=== PATIENT | female | born 1945 | race American Indian/Alaskan Native ===

== ENCOUNTER 2019-01-03 21:37 | Emergency (ER) | payer MEDICARE ==
--- NOTE | 2019-01-03 21:55 | Emergency Department Report ---
Blank Doc - Documentation Documentation: 73 y o female presents to Ed cc of lower back pain states she took some pain me dication which gave her little rellief denies dysuria, fall or trauma, pain worsened with movement ua acc eval
[2019-01-03 23:37] LABS: Bacteria,Urine 4+ /HPF (Negative); Bilirubin,Urine NEG (Negative); Blood,Urine NEG (Negative); Color,Urine Amber (Yellow); Mucus,Urine 2+ /HPF
[2019-01-04] MEDS ORDERED: TYLENOL #3 PO ONE (01:06)
--- NOTE | 2019-01-04 01:10 | Emergency Department Report ---
ED Neck Pain/Injury HPI - General Chief Complaint: Neck Pain/Injury Stated Complaint: R NECK PAIN, HEADACHES Time Seen by Provider: 01/03/19 21:50 Mode of arrival: Ambulatory Limitations: No Limitations - History of Present Illness Initial Comments: Pt is a 73 yo female who presents to the ED with c/o right sided neck pain that began 2 weeks ago. She describes the pain as a spasm and throbbing. she states that it travels to the head and causes a throbbing feeling to the head. She denies any injury, fall or trauma. she states it is worse with movement. she denies any heavy lifting. She denies any vision changes, numbness or weakness. She states she has been taking gabapentin and tizanidine without much relief. she has a PMHx of HTN and did not take her medication today. - Related Data Home Medications Medication Instructions Recorded Confirmed Last Taken Escitalopram Oxalate [Lexapro] 10 mg PO DAILY 09/23/13 04/19/15 Unknown Folic Acid [Folvite] 1 mg PO DAILY 09/23/13 04/19/15 04/17/15 Lisinopril [Zestril] 40 mg PO DAILY 09/23/13 04/19/15 04/17/15 amLODIPine [Norvasc] 10 mg PO DAILY 09/23/13 04/19/15 04/17/15 hydrALAZINE [Apresoline TAB] 50 mg PO BID 09/23/13 04/19/15 04/17/15 Previous Rx's Medication Instructions Recorded Last Taken Type Cyclobenzaprine [Flexeril] 10 mg PO TID PRN #10 tablet 09/15/18 Unknown Rx predniSONE [Deltasone] 20 mg PO DAILY #5 tablet 09/15/18 Unknown Rx Baclofen [Lioresal] 10 mg PO QHS PRN #10 tab 01/04/19 Unknown Rx Meloxicam [Mobic] 7.5 mg PO QDAY PRN #14 tablet 01/04/19 Unknown Rx Prednisone [predniSONE 5 mg (6-Day 5 mg PO .TAPER #1 tab.ds.pk 01/04/19 Unknown Rx Pack, 21 Tabs)] Allergies Allergy/AdvReac Type Severity Reaction Status Date / Time aspirin Allergy Bleeding Verified 09/22/13 22:59 ED Review of Systems ROS: Stated complaint: R NECK PAIN, HEADACHES Other details as noted in HPI Comment: All other systems reviewed and negative ED Past Medical Hx - Past Medical History Previous Medical History?: Yes Hx Hypertension: Yes Hx Arthritis: Yes Hx Dementia: Yes Additional medical history: Irregular heartbeat in the 90s, she is not sure what the diagnosis was. HPLD, ANXIETY, GERD, ARTHRITIS - Surgical History Past Surgical History?: Yes Hx Cholecystectomy: Yes Hx Appendectomy: Yes Additional Surgical History: Hysterectomy, Hemorroidectomy - Social History Smoking Status: Never Smoker Substance Use Type: None - Medications Home Medications: Home Medications Medication Instructions Recorded Confirmed Last Taken Type Escitalopram Oxalate [Lexapro] 10 mg PO DAILY 09/23/13 04/19/15 Unknown History Folic Acid [Folvite] 1 mg PO DAILY 09/23/13 04/19/15 04/17/15 History Lisinopril [Zestril] 40 mg PO DAILY 09/23/13 04/19/15 04/17/15 History amLODIPine [Norvasc] 10 mg PO DAILY 09/23/13 04/19/15 04/17/15 History hydrALAZINE [Apresoline TAB] 50 mg PO BID 09/23/13 04/19/15 04/17/15 History Cyclobenzaprine [Flexeril] 10 mg PO TID PRN #10 tablet 09/15/18 Unknown Rx predniSONE [Deltasone] 20 mg PO DAILY #5 tablet 09/15/18 Unknown Rx Baclofen [Lioresal] 10 mg PO QHS PRN #10 tab 01/04/19 Unknown Rx Meloxicam [Mobic] 7.5 mg PO QDAY PRN #14 tablet 01/04/19 Unknown Rx Prednisone [predniSONE 5 mg (6-Day 5 mg PO .TAPER #1 tab.ds.pk 01/04/19 Unknown Rx Pack, 21 Tabs)] ED Physical Exam - General Limitations: No Limitations General appearance: alert, in no apparent distress - Head Head exam: Present: atraumatic, normocephalic - Eye Eye exam: Present: normal appearance, PERRL, EOMI - Neck Neck exam: Present: normal inspection, tenderness (TTP to the right lateral neck over the muscles, no midline C-spine tenderness, no step offs, no deformities), full ROM, other (no carotid bruit bilaterally ) - Respiratory Respiratory exam: Present: normal lung sounds bilaterally. Absent: respiratory distress, wheezes, rales, rhonchi, stridor, chest wall tenderness, accessory muscle use, decreased breath sounds, prolonged expiratory - Cardiovascular Cardiovascular Exam: Present: regular rate, normal rhythm, normal heart sounds. Absent: systolic murmur, diastolic murmur, rubs, gallop - Neurological Exam Neurological exam: Present: alert, oriented X3, CN II-XII intact, normal gait, other (5/5 strength in the BUE/BLE, normal finger to nose, normal heel to robles, equal fertilizer loader strength, sensation intact, no focal neuro deficit ). Absent: motor sensory deficit - Psychiatric Psychiatric exam: Present: normal affect, normal mood - Skin Skin exam: Present: warm, dry, intact ED Course Vital Signs 01/03/19 01/04/19 21:49 01:36 Temperature 97.9 F Pulse Rate 98 H 63 Respiratory 18 16 Rate Blood Pressure 187/108 Blood Pressure 187/108 187/77 [Left] O2 Sat by Pulse 100 100 Oximetry ED Medical Decision Making - Medical Decision Making Pt is a 73 yo female who presents to the ED with c/o right sided neck pain that began 2 weeks ago. She describes the pain as a spasm and throbbing. she states that it travels to the head and causes a throbbing feeling to the head. She denies any injury, fall or trauma. she states it is worse with movement. she denies any heavy lifting. She denies any vision changes, numbness or weakness. She states she has been taking gabapentin and tizanidine without much relief. she has a PMHx of HTN and did not take her medication today. pt has TTP over the right lateral neck over the muscles, no midline c-spine tenderness, no step offs, no deformities, no neuro deficit, no carotid bruit. pt given pain medication while in the emergency department, states her daughter drove her. discussed with pt that would change her zanaflex to baclofen, discussed with pt that she could no longer take the zanaflex. will give anti-inflammatory and steroid pack. discussed to please take her blood pressure medication. advised pt to follow up with her PCP in the next 2-3 days and discuss neck discomfort and high blood pressure. may use ice, rest, heat, epsom salt bath. return to the emergency room for any new or worsening symptoms. Critical care attestation.: If time is entered above; I have spent that time in minutes in the direct care of this critically ill patient, excluding procedure time. ED Disposition Clinical Impression: Neck pain, Elevated blood pressure reading Disposition: TO HOME OR SELFCARE Is pt being admited?: No Does the pt Need Aspirin: No Condition: Stable Instructions: Muscle Strain (ED) Additional Instructions: No longer take the zanaflex (tizanidine). take medication as prescribed. do not operate heavy machinery or drive while taking muscle relaxer due to potential for drowsiness. Please take your blood pressure medication as prescribed by your doctor. Follow up with your primary care doctor in the next 2-3 days and discuss neck discomfort and high blood pressure. may use ice, rest, heat, epsom salt bath. return to the emergency room for any new or worsening symptoms. Prescriptions: Baclofen [Lioresal] 10 mg PO QHS PRN #10 tab PRN Reason: Muscle Spasm Meloxicam [Mobic] 7.5 mg PO QDAY PRN #14 tablet PRN Reason: Pain, Moderate (4-6) Prednisone [predniSONE 5 mg (6-Day Pack, 21 Tabs)] 5 mg PO .TAPER #1 tab.ds.pk Referrals: EMPERATRIZ HICKMAN MD [Staff Physician] - 2-3 Days Time of Disposition: 01:14 Print Language: K[place]ILI
[2019-01-04 01:37] VITALS: BP 187/77
== END 2019-01-04 01:37 | disposition home or self-care (01) ==
LOC: ED 21:37
DX: M54.2 Cervicalgia (principal); I10 Essential (primary) hypertension; M19.90 Unspecified osteoarthritis, unspecified site; K21.9 Gastro-esophageal reflux disease without esophagitis; E78.5 Hyperlipidemia, unspecified; Z90.49 Acquired absence of other specified parts of digestive tract; Z88.6 Allergy status to analgesic agent; Z90.710 Acquired absence of both cervix and uterus; Z98.890 Other specified postprocedural states
CPT/HCPCS: 81001; 99283

== ENCOUNTER 2019-04-05 08:48 | Emergency (ER) | payer MEDICARE ==
[2019-04-05 09:00] VITALS: BP 170/78
--- NOTE | 2019-04-05 09:41 | Emergency Department Report ---
ED Back Pain/Injury HPI - General Chief Complaint: Back Pain/Injury Stated Complaint: LT SIDE PAIN Time Seen by Provider: 04/05/19 09:33 Source: patient Limitations: No Limitations - History of Present Illness Initial Comments: Patient is 74 years old female with history of hypertension and arthritis. Patient presented to the ER complaining of left flank pain for the last 3 days. Patient stated that pain feels like spasm. Patient denied any chest pain but he stated that it hurt when she take a deep breath on the left side. Patient denied any fever or chills. She also reported nausea but no vomiting. Patient also had increased urinary frequency. MD Complaint: back pain -: days(s) (3) - Related Data Home Medications Medication Instructions Recorded Confirmed Last Taken Escitalopram Oxalate [Lexapro] 10 mg PO DAILY 09/23/13 04/19/15 Unknown Folic Acid [Folvite] 1 mg PO DAILY 09/23/13 04/19/15 04/17/15 Lisinopril [Zestril] 40 mg PO DAILY 09/23/13 04/19/15 04/17/15 amLODIPine [Norvasc] 10 mg PO DAILY 09/23/13 04/19/15 04/17/15 hydrALAZINE [Apresoline TAB] 50 mg PO BID 09/23/13 04/19/15 04/17/15 Previous Rx's Medication Instructions Recorded Last Taken Type Cyclobenzaprine [Flexeril] 10 mg PO TID PRN #10 tablet 09/15/18 Unknown Rx predniSONE [Deltasone] 20 mg PO DAILY #5 tablet 09/15/18 Unknown Rx Baclofen [Lioresal] 10 mg PO QHS PRN #10 tab 01/04/19 Unknown Rx Meloxicam [Mobic] 7.5 mg PO QDAY PRN #14 tablet 01/04/19 Unknown Rx Prednisone [predniSONE 5 mg (6-Day 5 mg PO .TAPER #1 tab.ds.pk 01/04/19 Unknown Rx Pack, 21 Tabs)] Allergies Allergy/AdvReac Type Severity Reaction Status Date / Time aspirin Allergy Bleeding Verified 09/22/13 22:59 ED Review of Systems ROS: Stated complaint: LT SIDE PAIN Other details as noted in HPI Comment: All other systems reviewed and negative Constitutional: denies: chills, fever Respiratory: denies: cough Cardiovascular: denies: chest pain, palpitations Gastrointestinal: nausea. denies: abdominal pain, diarrhea, constipation, hematemesis, melena, hematochezia Genitourinary: frequency Musculoskeletal: back pain Neurological: denies: headache, weakness, numbness, paresthesias, confusion, abnormal gait ED Past Medical Hx - Past Medical History Previous Medical History?: Yes Hx Hypertension: Yes Hx Arthritis: Yes Hx Dementia: Yes Additional medical history: Irregular heartbeat in the 90s, she is not sure what the diagnosis was. HPLD, ANXIETY, GERD, ARTHRITIS - Surgical History Past Surgical History?: Yes Hx Cholecystectomy: Yes Hx Appendectomy: Yes Additional Surgical History: Hysterectomy, Hemorroidectomy - Social History Smoking Status: Current Every Day Smoker Substance Use Type: Alcohol, Prescribed - Medications Home Medications: Home Medications Medication Instructions Recorded Confirmed Last Taken Type Escitalopram Oxalate [Lexapro] 10 mg PO DAILY 09/23/13 04/19/15 Unknown History Folic Acid [Folvite] 1 mg PO DAILY 09/23/13 04/19/15 04/17/15 History Lisinopril [Zestril] 40 mg PO DAILY 09/23/13 04/19/15 04/17/15 History amLODIPine [Norvasc] 10 mg PO DAILY 09/23/13 04/19/15 04/17/15 History hydrALAZINE [Apresoline TAB] 50 mg PO BID 09/23/13 04/19/15 04/17/15 History Cyclobenzaprine [Flexeril] 10 mg PO TID PRN #10 tablet 09/15/18 Unknown Rx predniSONE [Deltasone] 20 mg PO DAILY #5 tablet 09/15/18 Unknown Rx Baclofen [Lioresal] 10 mg PO QHS PRN #10 tab 01/04/19 Unknown Rx Meloxicam [Mobic] 7.5 mg PO QDAY PRN #14 tablet 01/04/19 Unknown Rx Prednisone [predniSONE 5 mg (6-Day 5 mg PO .TAPER #1 tab.ds.pk 01/04/19 Unknown Rx Pack, 21 Tabs)] ED Physical Exam - General Limitations: No Limitations General appearance: alert, in no apparent distress - Head Head exam: Present: atraumatic, normocephalic, normal inspection - Eye Eye exam: Present: normal appearance, PERRL - ENT ENT exam: Present: normal exam, normal orophraynx, mucous membranes moist - Neck Neck exam: Present: normal inspection, full ROM. Absent: tenderness, meningismus, lymphadenopathy, thyromegaly - Respiratory Respiratory exam: Present: normal lung sounds bilaterally - Cardiovascular Cardiovascular Exam: Present: regular rate, normal rhythm, normal heart sounds - GI/Abdominal GI/Abdominal exam: Present: soft, normal bowel sounds. Absent: distended, tenderness, guarding, rebound, rigid, organomegaly, mass, bruit, pulsatile mass, hernia - Extremities Exam Extremities exam: Present: normal inspection, full ROM, normal capillary refill. Absent: tenderness, pedal edema, calf tenderness - Back Exam Back exam: Present: normal inspection, CVA tenderness (L). Absent: full ROM, tenderness, CVA tenderness (R) - Neurological Exam Neurological exam: Present: alert, oriented X3, CN II-XII intact, normal gait, reflexes normal - Psychiatric Psychiatric exam: Present: normal mood - Skin Skin exam: Present: warm, intact, normal color ED Course Vital Signs 04/05/19 08:58 Temperature 98.2 F Pulse Rate 94 H Respiratory 18 Rate Blood Pressure 170/78 O2 Sat by Pulse 100 Oximetry ED Medical Decision Making - Lab Data Result diagrams: 04/05/19 10:41 04/05/19 10:41 - Radiology Data Radiology results: report reviewed Referring Physician: WALT NAZARIO Patient Name: CYDNEY CONNER Date of : 1945 Sex: Female Report Date: 2019-04-05 Report Status: Finalized Findings [address] [address] Cat Scan Report Signed Patient: CYDNEY CONNER MR#: [id number] : 1945 Acct:[id number] Age/Sex: 74 / F ADM Date: 04/05/19 Loc: ED Attending Dr: Ordering Physician: WALT NAZARIO Date of Service: 04/05/19 Procedure(s): CT abdomen pelvis wo con Accession Number(s): [id number] cc: WALT NAZARIO CT ABDOMEN AND PELVIS WITHOUT CONTRAST INDICATION / CLINICAL INFORMATION: left flank pain. Several day history of acute worsening left flank pain. TECHNIQUE: Axial CT images were obtained through the abdomen and pelvis without IV contrast. All CT scans at this location are performed using CT dose reduction for ALARA by means of automated exposure control. COMPARISON: None available. FINDINGS: LOWER CHEST: No significant abnormality. LIVER: No significant abnormality. GALLBLADDER: No significant abnormality. BILE DUCTS: No significant abnormality. PANCREAS: No significant abnormality. SPLEEN: No significant abnormality. ADRENALS: No significant abnormality. RIGHT KIDNEY and URETER: No significant abnormality. LEFT KIDNEY and URETER: Nonobstructive left-sided nephrolithiasis STOMACH and SMALL BOWEL: No significant abnormality. COLON: No significant abnormality. Partial colonic resection. APPENDIX: Appendectomy PERITONEUM: No free fluid. No free air. No fluid collection. LYMPH NODES: No significant adenopathy. AORTA and ARTERIES: No significant abnormality. IVC and VEINS: No significant abnormality. URINARY BLADDER: No significant abnormality. REPRODUCTIVE ORGANS: No significant abnormality. Prior hysterectomy. ADDITIONAL FINDINGS: None. SKELETAL SYSTEM: No significant abnormality. IMPRESSION: Nonobstructive stones within the left collecting system. No obstructive left ureteral calculus identified. Signer Name: Stevan Oseguera MD Signed: 04/05/2019 10:22 AM Workstation Name: [id number] Transcribed By: BC Dictated By: Stevan Oseguera MD Electronically Authenticated By: Stevan Oseguera MD Signed Date/Time: 04/05/19 1022 DD/ [id number] TD/TT: - Medical Decision Making Patient is 74 years old female with history of hypertension and arthritis. Patient presented to the ER complaining of left flank pain for the last 3 days. Patient stated that pain feels like spasm. Patient denied any chest pain but he stated that it hurt when she take a deep breath on the left side. Patient denied any fever or chills. She also reported nausea but no vomiting. Patient also had increased urinary frequency. Patient labs reviewed and is unremarkable. Patient's CT abdomen and pelvis showed a left kidney stone, nonobstructing. Patient given Dr. Bustillo to follow- up and advised to return to the ER if symptoms are not improved. Critical care attestation.: If time is entered above; I have spent that time in minutes in the direct care of this critically ill patient, excluding procedure time. ED Disposition Clinical Impression: Left flank pain, Kidney stone on left side Disposition: DC- TO HOME OR SELFCARE Is pt being admited?: No Condition: Stable Instructions: Flank Pain (ED), Kidney Stones (ED) Referrals: MAGALY SOUSA MD [Other] - 3-5 Days ALCIDES BUSTILLO MD [Staff Physician] - 3-5 Days
--- NOTE | 2019-04-05 10:26 | Cat Scan Report ---
CT ABDOMEN AND PELVIS WITHOUT CONTRAST INDICATION / CLINICAL INFORMATION: left flank pain. Several day history of acute worsening left flank pain. TECHNIQUE: Axial CT images were obtained through the abdomen and pelvis without IV contrast. All CT scans at [facility] location are performed using CT dose reduction for ALARA by means of automated exposure control. COMPARISON: None available. FINDINGS: LOWER CHEST: No significant abnormality. LIVER: No significant abnormality. GALLBLADDER: No significant abnormality. BILE DUCTS: No significant abnormality. PANCREAS: No significant abnormality. SPLEEN: No significant abnormality. ADRENALS: No significant abnormality. RIGHT KIDNEY and URETER: No significant abnormality. LEFT KIDNEY and URETER: Nonobstructive left-sided nephrolithiasis STOMACH and SMALL BOWEL: No significant abnormality. COLON: No significant abnormality. Partial colonic resection. APPENDIX: Appendectomy PERITONEUM: No free fluid. No free air. No fluid collection. LYMPH NODES: No significant adenopathy. AORTA and ARTERIES: No significant abnormality. IVC and VEINS: No significant abnormality. URINARY BLADDER: No significant abnormality. REPRODUCTIVE ORGANS: No significant abnormality. Prior hysterectomy. ADDITIONAL FINDINGS: None. SKELETAL SYSTEM: No significant abnormality. IMPRESSION: Nonobstructive stones within the left collecting system. No obstructive left ureteral calculus identi fied. Signer Name: Stevan Oseguera MD Signed: 04/05/2019 10:22 AM Workstation Name: [id number]
[2019-04-05 11:00] LABS: Basophils # (Auto) 0.1 K/mm3 (0.0-0.1); Basophils % (Auto) 0.8 % (0.0-1.8); Eosinophils # (Auto) 0.2 K/mm3 (0.0-0.4); Eosinophils % (Auto) 2.7 % (0.0-4.3); Hematocrit 38.1 % (30.3-42.9); Hemoglobin 12.6 gm/dl (10.1-14.3); Lymphocytes # (Auto) 2.8 K/mm3 (1.2-5.4); Lymphocytes % (Auto) 45.8 % (13.4-35.0); Mean Corpuscular HGB Conc 33 % (30-34); Mean Corpuscular Volume 84 fl (79-97); Monocytes # (Auto) 0.4 K/mm3 (0.0-0.8); Monocytes % (Auto) 6.9 % (0.0-7.3); Platelet Count 235 K/mm3 (140-440); Red Blood Count 4.52 M/mm3 (3.65-5.03); Red Cell Distribution Width 15.3 % (13.2-15.2)
[2019-04-05 11:19] LABS: Calcium 9.4 mg/dL (8.4-10.2)
[2019-04-05 13:40] LABS: Bacteria,Urine 2+ /HPF (Negative); Bilirubin,Urine NEG (Negative); Blood,Urine NEG (Negative); Color,Urine Yellow (Yellow); Mucus,Urine FEW /HPF; Protein,Urine <15 mg/dL mg/dL (Negative); Urobilinogen,Urine < 2.0 mg/dL (<2.0)
[2019-04-05] MEDS ORDERED: MORPHINE IM ONE (14:07)
[2019-04-05] MEDS ORDERED: ZOFRAN IM ONE (14:07)
== END 2019-04-05 14:43 | disposition home or self-care (01) ==
LOC: ED 08:48
DX: N20.0 Calculus of kidney (principal); I10 Essential (primary) hypertension; M19.90 Unspecified osteoarthritis, unspecified site; F03.90 Unspecified dementia, unspecified severity, without behavioral disturbance, psychotic disturbance, mood disturbance, and anxiety; F17.200 Nicotine dependence, unspecified, uncomplicated; Z90.49 Acquired absence of other specified parts of digestive tract; Z90.89 Acquired absence of other organs; Z98.51 Tubal ligation status; Z98.890 Other specified postprocedural states; Z79.899 Other long term (current) drug therapy; Z88.6 Allergy status to analgesic agent
CPT/HCPCS: 36415; 74176; 80048; 81001; 85025; 85379; 96372; 99284; J2270; J2405

== ENCOUNTER 2019-05-01 19:56 | Inpatient (IN) | payer MEDICARE ==
--- NOTE | 2019-05-01 20:39 | Event Note ---
ED Screening Note Date of service: 05/01/19 Time: 20:35 ED Screening Note: This is a 74 y.o. F. that presents to the ER with chest pain and cough for 2 weeks. Patient seen in the ER 1 month ago and diagnosed with kidney stones. Patient called nurse hotline and told to come in for further evaluation. This initial assessment/diagnostic orders/clinical plan/treatment(s) is/are subject to change based on patients health status, clinical progression and re- assessment by fellow clinical providers in the ED. Further treatment and workup at subsequent clinical providers discretion. Patient/guardian urged not to elope from the ED as their condition may be serious if not clinically assessed and managed. Initial orders include: Labs, EKG, & CXR
--- NOTE | 2019-05-01 21:17 | XRay Report ---
CHEST 1 VIEW 8:54 PM INDICATION / CLINICAL INFORMATION: Chest Pain. COMPARISON: 09/15/2018. FINDINGS: SUPPORT DEVICES: None. HEART / MEDIASTINUM: The heart size and pulmonary vasculature are normal. The aorta is normal in suyapa margot. LUNGS / PLEURA: No significant pulmonary or pleural abnormality. No pneumothorax. ADDITIONAL FINDINGS: No significant additional findings. IMPRESSION: No acute abnormality or significant change. Signer Name: Adilson Doe MD Signed: 05/01/2019 9:12 PM Workstation Name: [id number]
[2019-05-01] MEDS ORDERED: fentaNYL 100 MCG/2 ML INJ IV ONE (21:31)
[2019-05-01] MEDS ORDERED: ONDANSETRON 4 MG/2 ML INJ IV ONE (21:31)
--- NOTE | 2019-05-01 21:34 | Emergency Department Report ---
HPI - General Chief Complaint: Chest Pain Time Seen by Provider: 05/01/19 20:34 - HPI HPI: Room 3 The patient is 74-year-old male presenting with chief complaint of chest and back pain. The patient states this morning she's had intermittent back spasms and was diagnosed with renal colic. Over the past week the patient states she also developed pleuritic chest pain and pain that worsens with movement in addition to her back pain which is described as sharp in nature. The patient states her chest pain is associated with shortness of breath, diaphoresis and nausea without vomiting. She missed pleurisy and gives her chest pain score 10/10. The patient contacted her primary physician today and was advised to come to the ED Location: [See above] Duration: [See above] Quality: [See above] Severity: [See above] Timing: [See above] Context: [See above] Modifying factors: [See above] Associated signs and symptoms: [see above] ED Past Medical Hx - Past Medical History Previous Medical History?: Yes Hx Hypertension: Yes Hx Arthritis: Yes Hx Kidney Stones: Yes Hx Dementia: Yes Additional medical history: Irregular heartbeat in the 90s, she is not sure what the diagnosis was. HPLD, ANXIETY, GERD, ARTHRITIS - Surgical History Past Surgical History?: Yes Hx Cholecystectomy: Yes Hx Appendectomy: Yes Additional Surgical History: Hysterectomy, Hemorroidectomy - Family History Family history: no significant - Social History Smoking Status: Current Every Day Smoker (1/2 pack per day) Substance Use Type: Alcohol (occasional) - Medications Home Medications: Home Medications Medication Instructions Recorded Confirmed Last Taken Type Escitalopram Oxalate [Lexapro] 10 mg PO DAILY 09/23/13 04/19/15 Unknown History Folic Acid [Folvite] 1 mg PO DAILY 09/23/13 04/19/15 04/17/15 History Lisinopril [Zestril] 40 mg PO DAILY 09/23/13 04/19/15 04/17/15 History amLODIPine [Norvasc] 10 mg PO DAILY 09/23/13 04/19/15 04/17/15 History hydrALAZINE [Apresoline TAB] 50 mg PO BID 09/23/13 04/19/15 04/17/15 History Cyclobenzaprine [Flexeril] 10 mg PO TID PRN #10 tablet 09/15/18 Unknown Rx predniSONE [Deltasone] 20 mg PO DAILY #5 tablet 09/15/18 Unknown Rx Baclofen [Lioresal] 10 mg PO QHS PRN #10 tab 01/04/19 Unknown Rx Meloxicam [Mobic] 7.5 mg PO QDAY PRN #14 tablet 01/04/19 Unknown Rx Prednisone [predniSONE 5 mg (6-Day 5 mg PO .TAPER #1 tab.ds.pk 01/04/19 Unknown Rx Pack, 21 Tabs)] HYDROcodone/APAP 5-325 [[place] 1 each PO Q6HR PRN #14 tablet 04/05/19 Unknown Rx 5/325] Ondansetron [Zofran Odt] 4 mg PO Q8HR PRN #14 tab.rapdis 04/05/19 Unknown Rx ED Review of Systems ROS: Stated complaint: CHEST PAIN,BODY PAIN,WEAKNESS Other details as noted in HPI Constitutional: diaphoresis Eyes: denies: eye pain ENT: denies: throat pain Respiratory: shortness of breath, other (pleurisy) Cardiovascular: chest pain Endocrine: no symptoms reported Gastrointestinal: nausea. denies: vomiting Genitourinary: denies: dysuria Musculoskeletal: back pain Neurological: denies: headache Physical Exam - Physical Exam Vital Signs: Vital Signs 05/01/19 20:10 Temperature 99.1 F Pulse Rate 85 Respiratory 20 Rate Blood Pressure 116/72 O2 Sat by Pulse 99 Oximetry Physical Exam: GENERAL: The patient is well-developed well-nourished female lying on stretcher appearing to be in mild discomfort HEENT: Normocephalic. Atraumatic. Extraocular motions are intact. Patient has moist mucous membranes. NECK: Supple. Trachea midline CHEST/LUNGS: Diminished breath sounds bilaterally secondary to poor effort. There is no respiratory distress noted. HEART/CARDIOVASCULAR: Regular. There is no tachycardia. There is no gallop rub or murmur. ABDOMEN: Abdomen is soft, nontender. Patient has normal bowel sounds. There is no abdominal distention. SKIN: There is no rash. There is no edema. There is no diaphoresis. NEURO: The patient is awake, alert, and oriented. The patient is cooperative. The patient has normal speech MUSCULOSKELETAL: There is no evidence of acute injury. ED Course Vital Signs 05/01/19 20:10 Temperature 99.1 F Pulse Rate 85 Respiratory 20 Rate Blood Pressure 116/72 O2 Sat by Pulse 99 Oximetry ED Medical Decision Making - Lab Data Result diagrams: 05/01/19 21:02 05/01/19 21:02 Laboratory Tests 05/01/19 05/01/19 05/01/19 21:02 21:02 21:20 WBC 7.1 RBC 3.72 Hgb 10.0 L Hct 31.1 MCV 84 MCH 27 L MCHC 32 RDW 13.7 Plt Count 386 Lymph % (Auto) 34.6 [place] % (Auto) 8.2 H Eos % (Auto) 2.3 Baso % (Auto) 1.2 Lymph # 2.5 [place] # 0.6 Eos # 0.2 Baso # 0.1 Seg Neutrophils % 53.7 Seg Neutrophils # 3.8 Sodium 141 Potassium 3.1 L Chloride 95.8 L Carbon Dioxide 26 Anion Gap 22 BUN 9 Creatinine 1.0 Estimated GFR > 60 BUN/Creatinine Ratio 9 Glucose 99 Calcium 8.9 Troponin T < 0.010 Urine Color Yellow Urine Turbidity Clear Urine pH 6.0 Ur Specific Chambers 1.009 Urine Protein <15 mg/dl Urine Glucose (UA) Neg Urine Ketones Neg Urine Blood Neg Urine Nitrite Neg Urine Bilirubin Neg Urine Urobilinogen 2.0 Ur Leukocyte Esterase Neg Urine WBC (Auto) 1.0 Urine RBC (Auto) 3.0 U Epithel Cells (Auto) < 1.0 Urine Bacteria (Auto) 2+ - EKG Data -: EKG Interpreted by Me EKG shows normal: sinus rhythm Rate: normal - EKG Data When compared to previous EKG there are: no significant change Interpretation: unchanged when compared t (09/15/2018) - Radiology Data Radiology results: report reviewed (chest x-ray, CT chest), image reviewed (chest x-ray, CT chest) interpreted by me: Chest x-ray-minor fluid in the patient versus atelectasis right upper lobe. Possibly blunted left costophrenic angle. No focal infiltrates, no pneumothorax [facility] [address] [place] [address] XRay Report Signed Patient: CYDNEY CONNER MR#: [id number] : 1945 Acct:[id number] Age/Sex: 74 / F ADM Date: 05/01/19 Loc: ED Attending Dr: Ordering Physician: CHINA GONZALEZ Date of Service: 05/01/19 Procedure(s): XR chest 1V ap Accession Number(s): [id number] cc: CHINA GONZALEZ Fluoro Time In Minutes: CHEST 1 VIEW 8:54 PM INDICATION / CLINICAL INFORMATION: Chest Pain. COMPARISON: 09/15/2018. FINDINGS: SUPPORT DEVICES: None. HEART / MEDIASTINUM: The heart size and pulmonary vasculature are normal. The aorta is normal in caliber. LUNGS / PLEURA: No significant pulmonary or pleural abnormality. No pneumothorax. ADDITIONAL FINDINGS: No significant additional findings. IMPRESSION: No acute abnormality or significant change. Signer Name: Adilson Doe MD Signed: 05/01/2019 9:12 PM Workstation Name: [id number] Transcribed By: RT Dictated By: Adilson Doe MD Electronically Authenticated By: Adilson Doe MD Signed Date/Time: 05/01/192111 DD/ 10 TD/TT: [place] [address] Cat Scan Report Signed Patient: CYDNEY CONNER MR#: [id number] : 1945 Acct:[id number] Age/Sex: 74 / F ADM Date: 05/01/19 Loc: ED Attending Dr: Ordering Physician: OMER JAUREGUI MD Date of Service: 05/01/19 Procedure(s): CT angio chest Accession Number(s): [id number] cc: OMER JAUREGUI MD CTA CHEST WITH CONTRAST INDICATION / CLINICAL INFORMATION: chest pain, pleurisy, shortness of breath. TECHNIQUE: Axial CT images were obtained through the chest after injection of IV contrast. 3 plane MIP and/or 3D reconstructions were produced. All CT scans at this location are performed using CT dose reduction for ALARA by means of automated exposure control. COMPARISON: None available. FINDINGS: PULMONARY ARTERIES: No pulmonary emboli. THORACIC AORTA: No sig nificant abnormality. HEART: No significant abnormality. CORONARY ARTERIES: Mild LAD calcification. MEDIASTINUM / JAYDON: No significant abnormality. PLEURA: No pleural effusion. Mild right pleural thickening. No pneumothorax. LUNGS: No acute air space or interstitial disease. Mild bibasilar dependent atelectasis. ADDITIONAL FINDINGS: None. UPPER ABDOMEN: No acute findings. SKELETAL STRUCTURES: No significant osseous abnormality. IMPRESSION: 1. No CT evidence for pulmonary embolism. 2. Mild right pleural thickening without significant pleural effusion. Signer Name: Tony Sullivan MD Signed: 05/01/2019 11:28 PM Workstation Name: [id number] Transcribed By: ANDRA Dictated By: Pablo Sullivan MD Electronically Authenticated By: Pablo Sullivan MD Signed Date/Time: 05/01/192327 DD/ 24 TD/TT: - Differential Diagnosis PE, pleurisy, ACS, pericarditis, GERD, aortic dissection Critical care attestation.: If time is entered above; I have spent that time in minutes in the direct care of this critically ill patient, excluding procedure time. ED Disposition Clinical Impression: Chest pain Disposition: OP ADMIT IP TO THIS HOSP Is pt being admited?: Yes Does the pt Need Aspirin: No Condition: Fair Instructions: Chest Pain (ED) Referrals: SAMI MORADRAPER MD MARYAN [Referring] - 3-5 Days Time of Disposition: 23:37 (hospitalist paged (Dr Leroy))
[2019-05-01 21:35] LABS: Basophils # (Auto) 0.1 K/mm3 (0.0-0.1); Basophils % (Auto) 1.2 % (0.0-1.8); Eosinophils # (Auto) 0.2 K/mm3 (0.0-0.4); Eosinophils % (Auto) 2.3 % (0.0-4.3); Hematocrit 31.1 % (30.3-42.9); Lymphocytes # (Auto) 2.5 K/mm3 (1.2-5.4); Lymphocytes % (Auto) 34.6 % (13.4-35.0); Mean Corpuscular HGB Conc 32 % (30-34); Mean Corpuscular Volume 84 fl (79-97); Monocytes # (Auto) 0.6 K/mm3 (0.0-0.8); Monocytes % (Auto) 8.2 % (0.0-7.3); Platelet Count 386 K/mm3 (140-440); Red Blood Count 3.72 M/mm3 (3.65-5.03); Red Cell Distribution Width 13.7 % (13.2-15.2)
[2019-05-01 21:54] LABS: BUN/Creatinine Ratio 9; Blood Urea Nitrogen 9 mg/dL (7-17); Calcium 8.9 mg/dL (8.4-10.2); Hemolysis Index 2
[2019-05-01 21:57] LABS: Bacteria,Urine 2+ /HPF (Negative); Bilirubin,Urine NEG (Negative); Blood,Urine NEG (Negative); Color,Urine Yellow (Yellow); Protein,Urine <15 mg/dL mg/dL (Negative)
[2019-05-01] MEDS ORDERED: POTASSIUM CHLORIDE ER 20 MEQ TAB PO ONE (22:29)
--- NOTE | 2019-05-01 23:32 | Cat Scan Report ---
CTA CHEST WITH CONTRAST INDICATION / CLINICAL INFORMATION: chest pain, pleurisy, shortness of breath. TECHNIQUE: Axial CT images were obtained through the chest after injection of IV contrast. 3 plane MIP and/or 3D reconstructions were produced. All CT scans at this location are performed using CT dose reduction f or ALARA by means of automated exposure control. COMPARISON: None available. FINDINGS: PULMONARY ARTERIES: No pulmonary emboli. THORACIC AORTA: No significant abnormality. HEART: No significant abnormality. CORONARY ARTERIES: Mild LAD calcification. MEDIASTINUM / JAYDON: No significant abnormality. PLEURA: No pleural effusion. Mild right pleural thickening. No pneumothorax. LUNGS: No acute air space or interstitial disease. Mild bibasilar dependent atelectasis. ADDITIONAL FINDINGS: None. UPPER ABDOMEN: No acute findings. SKELETAL STRUCTURES: No significant osseous abnormality. IMPRESSION: 1. No CT evidence for pulmonary embolism. 2. Mild right pleural thickening without significant pleural effusion. Signer Name: Tony Sullivan MD Signed: 05/01/2019 11:28 PM Workstation Name: [id number]
[2019-05-01] MEDS ORDERED: CLOPIDOGREL 300 MG TAB PO ONE (23:37)
[2019-05-02] MEDS ORDERED: ONDANSETRON 4 MG/2 ML INJ IV PRN (00:25)
[2019-05-02] MEDS ORDERED: ACETAMINOPHEN 325 MG TAB PO PRN (00:25)
[2019-05-02] MEDS ORDERED: MORPHINE 2 MG/1 ML INJ IV PRN (00:25)
[2019-05-02] MEDS ORDERED: NITROGLYCERIN 0.4 MG TAB SUBL SL PRN (00:27)
[2019-05-02] MEDS ORDERED: POTASSIUM CHLORIDE 20 MEQ 20 MEQ/100 ML BAG IV ONE (00:29)
[2019-05-02 01:13] LABS: BUN/Creatinine Ratio 8; Blood Urea Nitrogen 8 mg/dL (7-17); Calcium 8.3 mg/dL (8.4-10.2); Hemolysis Index 13
[2019-05-02] MEDS ORDERED: HEPARIN 5,000 UNIT/1 ML VIAL ONE (01:19)
[2019-05-02] MEDS: HEPARIN 5,000 UNIT/1 ML VIAL SUB-Q SCH ×2 (01:32→10:07)
[2019-05-02] MEDS ORDERED: SODIUM CHLORIDE 0.9% 1000 ML 1,000 ML ONE (01:37)
[2019-05-02] MEDS ORDERED: MORPHINE 2 MG/1 ML INJ ONE (01:48)
--- NOTE | 2019-05-02 05:47 | History and Physical Report ---
CHIEF COMPLAINT: Chest pain. HISTORY OF PRESENT ILLNESS: The patient is a 74-year-old female who presented with a sharp chest pain located in the retrosternal area and precordial area radiating to the back. The patient admitted to having intermittent back spasms going on for quite some time and was diagnosed with kidney stone, but the back pain is lower down in the flank areas and the patient stated that over the past week she has had some pleuritic chest pain and also pain that is worse with movement and she said that the pain is associated with shortness of breath, diaphoresis and nausea without vomiting. The patient gave her pain rate as 10/10 and contacted her primary care physician on 05/01/2019 who advised her to come to the Emergency Room. PAST MEDICAL HISTORY: Pertinent for hypertension, arthritis, kidney stones, dementia. Also, there is past history of irregular heartbeat, anxiety disorder, and gastroesophageal reflux disease. PAST SURGICAL HISTORY: Pertinent for cholecystectomy, appendectomy, hysterectomy, hemorrhoidectomy. FAMILY HISTORY: There is no family history of coronary artery disease. SOCIAL HISTORY: The patient smokes cigarettes, drinks alcohol occasionally and does not use illicit drugs. MEDICATIONS: The patient is on Lexapro 10 mg by mouth daily, folic acid 1 mg by mouth daily, lisinopril 40 mg by mouth daily, Norvasc 10 mg by mouth daily, Apresoline 50 mg by mouth twice daily, Flexeril 10 mg by mouth 3 times daily as needed for pain, prednisone 20 mg daily, baclofen 10 mg by mouth every night as needed for muscle spasm, meloxicam 7.5 mg by mouth daily as needed for pain and [place] 5/325 mg 1 by mouth every 6 hours as needed for pain. Also, the patient is on Zofran under the tongue 4 mg every 8 hours as needed for nausea and vomiting. ALLERGIES: The patient is allergic to ASPIRIN. REVIEW OF SYSTEMS: CONSTITUTIONAL: There is no fever, no chills, no diaphoresis. HEENT: There is no headache or sore throat. CARDIOVASCULAR SYSTEM: Chest pain is present. No orthopnea. RESPIRATORY SYSTEM: Shortness of breath is present. No cough. GASTROINTESTINAL SYSTEM: There is nausea, but no vomiting, no abdominal pain, diarrhea or constipation. NEUROLOGICAL SYSTEM: There is dizziness, but no numbness. No altered mental status. MUSCULOSKELETAL SYSTEM: There is no joint pain or swelling. DERMATOLOGICAL SYSTEM: There is no skin rash or itching. GENITOURINARY SYSTEM: There is no dysuria, hematuria, or flank pain. Rest of system review is normal. PHYSICAL EXAMINATION: GENERAL: At the time of exam, the patient was found to be alert, oriented x 3 and in mild distress due to chest pain. VITAL SIGNS: At the initial time of presentation showed temperature of 99.1 degrees Fahrenheit, pulse of 85, respirations 20, blood pressure 116/72, O2 sat of 99% on room air. HEENT: Showed pupils to be equal, round, reactive to light and accommodating. Extraocular muscles are intact. NECK: Supple with no JVD or carotid bruit. CARDIOVASCULAR SYSTEM: Showed normal first and second heart sounds with no gallops or murmurs. RESPIRATORY SYSTEM: Show good air entry on both sides of the lungs with no abnormal breath sounds. GASTROINTESTINAL SYSTEM: Show abdomen to be full, soft, nontender with no organomegaly or rigidity. NEUROLOGIC: Shows no focal deficit. MUSCULOSKELETAL SYSTEM: Show no joint swelling or tenderness. DERMATOLOGICAL SYSTEM: Showed no skin rash. GENITOURINARY SYSTEM: Showing no costovertebral angle tenderness. PERTINENT LABORATORY AND IMAGING STUDIES: The patient had CT angiogram of the chest done that shows no evidence of pulmonary embolism, but shows mild right pleural thickening without significant pleural effusion. Also, the patient had a chest x-ray done that shows no acute abnormality. The patient's lab result shows CBC with normal white count, low hemoglobin of 10, low hematocrit of 31.1 with CBC differential showing high monocyte count of 8.2%. The patient's chemistry showed normal sodium with low potassium level of 3.1 and low chloride level of 95.8 with rest of chemistry being unremarkable. The patient's troponin level was unremarkable. Urinalysis came back unremarkable. DIAGNOSES: 1. Chest pain. 2. Hypokalemia. PLAN OF CARE: 1. The patient will be admitted to telemetry. 2. The patient will have serial cardiac enzymes involving troponin, total CK, and CK-MB checked every 6 hours x 2 more levels. 3. The patient will be n.p.o. 4. The patient will have Lexiscan stress test this morning. 5. The patient will be on IV morphine 2 mg every 5 minutes as needed for chest pain per protocol. 6. The patient will be on heparin 5000 units subcutaneous q.12 hours for DVT prophylaxis. 7. The patient will be on nitroglycerin ointment 0.5 mg topically q.i.d. and will be on Nitrostat 0.4 mg sublingual every 5 minutes as needed for breakthrough chest pain. 8. The patient will be on IV Zofran 4 mg every 8 hours for nausea and vomiting. 9. The patient will have IV potassium chloride 20 mEq in 100 mL of normal saline given over 1 hour. 10. The patient will be on Tylenol 650 mg by mouth every 4 hours for fever and headache. 11. The patient will be on oxygen by nasal cannula at 2 liter per minute. 12. The patient will have basic metabolic panel done this morning, 05/02/2019 to monitor the potassium level. JOB# [id number] OCN/NTS
[2019-05-02] MEDS: NITROGLYCERIN 2% OINT 1 GM TP SCH ×3 (06:01→16:07)
[2019-05-02 07:32] LABS: Creatine Kinase MB 1.2 ng/mL (0.0-4.0)
[2019-05-02] MEDS ORDERED: REGADENOSON 0.4 MG/5 ML INJ IV ONE (10:34)
[2019-05-02 13:49] VITALS: BP 140/59
[2019-05-02] MEDS ORDERED: POTASSIUM CHLORIDE ER 20 MEQ TAB PO ONE (14:21)
[2019-05-02] MEDS ORDERED: oxyCODONE /ACETAMINOPHEN 5-325MG TAB PO PRN (14:22)
--- NOTE | 2019-05-02 14:42 | Discharge Summary ---
Providers - Providers Date of Admission: 05/02/19 00:21 Attending physician: AUSTIN KENNEDY MD Hospitalization Reason for admission: chest pain, non specific Condition: Fair Hospital course: The patient is 74-year-old male presenting with chief complaint of chest and back pain. The patient states this morning she's had intermittent back spasms. Patient was diagnosed renal colic and was given pain medicine and advised to increase water intake. Over the past week the patient states she also developed pleuritic chest pain and pain that worsens with movement in addition to her back pain which is described as sharp in nature. The patient states her chest pain is associated with shortness of breath, diaphoresis and nausea without vomiting. The patient contacted her primary physician today and was advised to come to the ED. In the emergency department cardiac enzymes are negative, EKG, normal, CTA was done and unremarkable. Stress test was done was normal. Patient's chest pain is nonspecific time she complains on the right on the left and on the back. Patient said pain was eased up with percocet. Recent was discharged home with Percocet, Flexeril. I have discussed the management plan with the patient her daughter in detail. I also discussed about the negative finding of CTA and a stress test. Disposition: DC-01 TO HOME OR SELFCARE Time spent for discharge: 32 minutes - Discharge Diagnoses (1) Chest pain Status: Acute (2) Asthma Status: Chronic Comment: stabel on DANNY and LABA (3) Hyperlipidemia Status: Chronic Comment: still on statins (4) Hypertension Status: Chronic Comment: controlled Core Measure Documentation - Palliative Care Palliative Care/ Comfort Measures: Not Applicable - Core Measures Any of the following diagnoses?: none Exam - Physical Exam Narrative exam: Not in cardiopulmonary distress. The patient is obese. Vital signs as documented. Head exam is unremarkable. No scleral icterus . Neck is without jugular venous distension, thyromegaly, or carotid bruits. Lungs are clear to auscultation. Cardiac exam reveals regular rate and Rhythm. Abdominal exam reveals normal bowel sounds. Extremities are nonedematous and both femoral and pedal pulses are normal. IRRIGATION SUPERVISOR: Alert and oriented 3. No focal weakness. - Constitutional Vitals: Temp Pulse Resp BP Pulse Ox 98.9 F 72 14 140/59 96 05/02/19 12:40 05/02/19 12:40 05/02/19 12:40 05/02/19 12:40 05/02/19 12:40 Plan Activity: no restrictions Weight Bearing Status: Full Weight Bearing Diet: regular Follow up with: REZA JOSE MD [Referring] - 3-5 Days Prescriptions: Cyclobenzaprine [Flexeril 10 MG TAB] 10 mg PO TID PRN #30 tablet PRN Reason: Muscle Spasm Oxycodone HCl/Acetaminophen [Percocet 10/325 mg] 1 each PO Q6HR PRN #12 tablet PRN Reason: Pain
--- NOTE | 2019-05-02 16:11 | Treadmill Report ---
THALLIUM STRESS TEST LEFT VENTRICLE: Left ventricular chamber size is within normal spread. Perfusion study demonstrates normal apical thinning, otherwise homogeneous uptake of the tracer in all segments, no significant perfusion defects identified. Gated analysis demonstrates normal left ventricular systolic function, ejection fraction 65%. CONCLUSION: Normal myocardial perfusion study. JOB# [id number] CA/NTS
[2019-05-03] MEDS ORDERED: PNEUMOCOCCAL 23 Valent 0.5 ML VIAL IM ONE (12:00)
== END 2019-05-02 15:35 | disposition home or self-care (01) | DRG 313 ==
LOC: ED 19:56 → 4A 05-02 00:21
PROVIDERS: ADMIT Internal Medicine; ATTEND Internal Medicine
DX: R07.9 Chest pain, unspecified (principal); I10 Essential (primary) hypertension; F17.210 Nicotine dependence, cigarettes, uncomplicated; E78.5 Hyperlipidemia, unspecified; M54.9 Dorsalgia, unspecified; J45.909 Unspecified asthma, uncomplicated; Z90.710 Acquired absence of both cervix and uterus; Z87.442 Personal history of urinary calculi; Z88.8 Allergy status to other drugs, medicaments and biological substances; K21.9 Gastro-esophageal reflux disease without esophagitis; E87.6 Hypokalemia
CPT/HCPCS: 36415; 71045; 71275; 78452; 80048; 81001; 82550; 82553; 84132; 84484; 85025; 93005; 93010; 93017; 99406; G0378; A9502; J1644; J2270; J2405; J2785; J3010; J3480; J7030; Q9967

== ENCOUNTER 2022-02-09 23:06 | Inpatient (IN) | payer MEDICARE ==
--- NOTE | 2022-02-09 23:27 | Emergency Department Report ---
HPI - General Time Seen by Provider: 02/09/22 23:13 - HPI HPI: Charge nurse triage Patient is a 76-year-old female present with a chief complaint of altered mental status. Per EMS patient's daughter heard the patient fall in the bathroom. The daughter went to the bathroom to find the patient apparently seizing leaning against the cullen "stiff as a board." The daughter states the patient was "foaming at the mouth" and this lasted about 10 seconds before the patient slid down to the floor. EMS was called to find the patient only responsive to tactile stimuli. EMS states that the patient has not spoken until she arrived to the ED. ED Past Medical Hx - Past Medical History Hx Hypertension: Yes Hx GERD: Yes Hx Arthritis: Yes Hx Kidney Stones: Yes Hx Dementia: Yes Additional medical history: Irregular heartbeat in the 90s, she is not sure what the diagnosis was. HPLD, ANXIETY, GERD, ARTHRITIS - Surgical History Hx Cholecystectomy: Yes Hx Appendectomy: Yes Additional Surgical History: Hysterectomy, Hemorroidectomy - Family History Family history: no significant - Social History Smoking Status: Unknown if ever smoked Substance Use Type: None - Medications Home Medications: Home Medications Medication Instructions Recorded Confirmed Last Taken Type Folic Acid [Folvite] 1 mg PO DAILY 09/23/13 07/18/21 07/11/21 History Acetaminophen [Tylenol] 650 mg PO Q8H PRN 07/17/21 07/18/21 07/11/21 History Citalopram [celeXA] 20 mg PO QDAY 07/17/21 07/18/21 07/11/21 History predniSONE [Deltasone] 10 mg PO DAILY 07/17/21 07/18/21 07/11/21 History Lisinopril/Hydrochlorothiazide 1 tab PO QDAY 07/18/21 07/18/21 07/11/21 History [Zestoretic 20-12.5 mg] Pantoprazole Sodium 40 mg PO QDAY 07/18/21 07/18/21 07/11/21 History Simvastatin 40 mg PO QDAY 07/18/21 07/18/21 07/11/21 History Magnesium Oxide 250 mg PO DAILY #10 tablet 07/21/21 Unknown Rx ED Review of Systems ROS: Stated complaint: CODE STROKE Other details as noted in HPI Comment: Unobtainable due to pts medical conditions Physical Exam - Physical Exam Physical Exam: GENERAL: The patient is well-developed well-nourished female lying on stretcher with withdrawal slobber/unassisted her eyes are normal occasionally making eye contact. [] HEENT: Normocephalic. Atraumatic. Extraocular motions are intact. Patient has moist mucous membranes. NECK: Supple. Trachea midline CHEST/LUNGS: Clear to auscultation. There is no respiratory distress noted. HEART/CARDIOVASCULAR: Regular. There is no tachycardia. There is no gallop rub or murmur. ABDOMEN: Abdomen is soft, nontender. Patient has normal bowel sounds. There is no abdominal distention. SKIN: There is no rash. There is no edema. There is no diaphoresis. NEURO: The patient is awake with eyes open making eye contact patient stated one-word. The patient is not fully cooperative with neurologic exam. The patient is able to hold either upper extremity at 45 degree angle for 10-second count. The patient does not hold either lower extremity off of the stretcher for any period of time MUSCULOSKELETAL:There is no evidence of acute injury. ED Course - Consultations Consultation #1: 02/09/22 23:52 Case discussed with tele-neurologist- recommends tPA now and if LVO present transfer to Center for thrombectomy ED Medical Decision Making - Lab Data Result diagrams: 02/09/22 23:36 02/09/22 23:36 Laboratory Tests 02/09/22 02/09/22 02/09/22 23:36 23:36 23:36 WBC 12.7 H RBC 3.83 Hgb 9.6 L Hct 30.5 MCV 80 MCH 25 L MCHC 31 RDW 19.1 H Plt Count 410 [place] % (Auto) 4.1 Eos % (Auto) 0.1 [place] # (Auto) 0.5 Eos # (Auto) 0.0 Baso # (Auto) 0.0 Seg Neutrophils % 77.2 H Seg Neutrophils # 10.2 H PT 15.9 H INR 1.14 H APTT 27.7 Sodium 145 Potassium 3.2 L Chloride 104.5 Carbon Dioxide 22 Anion Gap 22 BUN 12 Creatinine 1.1 Estimated GFR 59 BUN/Creatinine Ratio 11 Glucose 192 H Calcium 7.1 L Total Bilirubin 0.70 AST 13 ALT 8 Alkaline Phosphatase 56 Total Creatine Kinase 147 H CK-MB (CK-2) 1.6 CK-MB (CK-2) Rel Index 1.0 Troponin T < 0.010 Total Protein 6.5 Albumin 3.5 L Albumin/Globulin Ratio 1.2 Plasma/Serum Alcohol 02/09/22 23:36 WBC RBC Hgb Hct MCV MCH MCHC RDW Plt Count [place] % (Auto) Eos % (Auto) [place] # (Auto) Eos # (Auto) Baso # (Auto) Seg Neutrophils % Seg Neutrophils # PT INR APTT Sodium Potassium Chloride Carbon Dioxide Anion Gap BUN Creatinine Estimated GFR BUN/Creatinine Ratio Glucose Calcium Total Bilirubin AST ALT Alkaline Phosphatase Total Creatine Kinase CK-MB (CK-2) CK-MB (CK-2) Rel Index Troponin T Total Protein Albumin Albumin/Globulin Ratio Plasma/Serum Alcohol < 0.01 - EKG Data -: EKG Interpreted by Ok EKG shows normal: sinus rhythm, axis Rate: normal (84 bpm) - EKG Data When compared to previous EKG there are: previous EKG unavailable Interpretation: other (PA-C) - Radiology Data Radiology results: report reviewed (CT head), image reviewed (CT head) [place] [address] Cat Scan Report Signed Patient: CYDNEY CONNER MR#: [id number] : 1945 Acct:[id number] Age/Sex: 76 / F ADM Date: 02/09/22 Loc: ED Attending Dr: Ordering Physician: OMER JAUREGUI MD Date of Service: 02/09/22 Procedure(s): CT head/brain wo con Accession Number(s): [id number] cc: OMER JAUREGUI MD CT head without contrast INDICATION : Altered mental status. TECHNIQUE: Axial imaging performed from the skull apex through the skull base without the use of contrast. All CT scans at this location are performed using CT dose reduction f or ALARA by means of automated exposure control. COMPARISON: None FINDINGS: Parenchyma: No mass, stroke or hemorrhage. Chronic lacunar infarct right basal ganglia. Mild chronic changes of atrophy and small vessel ischemia. Ventricles: Ventricles are normal in size and appear symmetric. Soft tissues: Soft tissues including the orbits appear normal. Bones: No acute osseous abnormality. Sinuses: Sinuses and mastoid air cells are clear. IMPRESSION: No acute abnormality. Signer Name: Abhishek Camara MD Signed: 02/09/2022 11:41 PM Workstation Name: [id number] Transcribed By: ES Dictated By: Abhishek Camara MD Electronically Authenticated By: Abhishek Camara MD Signed Date/Time: 02/09/222340 DD/ 38 TD/TT: [facility] [address] [place] [address] Cat Scan Report Signed Patient: CYDNEY CONNER MR#: [id number] : 1945 Acct:[id number] Age/Sex: 76 / F ADM Date: 02/09/22 Loc: ED Attending Dr: Ordering Physician: OMER JAUREGUI MD Date of Service: 02/09/22 Procedure(s): CT angio head Accession Number(s): [id number] cc: OMER JAUREGUI MD CTA NECK WITH CONTRAST HISTORY: Altered mental status COMPARISON: None. TECHNIQUE: Routine CTA of the neck was performed. 3-D/MIP reformats were postprocessed. Percentage stenosis is determined by direct quantitative measurements of diseased internal carotid artery diameter compared with normal distal internal carotid artery reference segments or by criteria similar to NASCET where applicable.All CT scans at this location are performed using CT dose reduction for ALARA by means of automated exposure control CONTRAST: 100 ml of Omnipaque 350 FINDINGS: Aortic arch: No significant abnormality. Cervical vertebral arteries: Right vertebral artery: Normal from origin to basilar formation Left vertebral artery: 50% stenoses at the origin of left vertebral artery; multiple focal areas of minimal narrowing in the left vertebral artery up to basilar formation Common carotid arteries: No significant abnormality. Carotid bifurcations: Right carotid bifurcation: Normal Left carotid bifurcation: Atherosclerotic plaque with approximately 50% stenoses at the origin; soft plaque with focal calcification Cervical internal carotid arteries: No significant abnormality. Additional findings: None. IMPRESSION: Left carotid bifurcation: Soft plaque with focal calcification resulting in 50% stenoses of the proximal left internal carotid artery Right carotid bifurcation: Normal CTA HEAD WITH CONTRAST TECHNIQUE: Routine non-contrast CT Head, CTA of the head and post-contrast CT Head are performed. 3-D/MIP reformats postprocessed. All CT scans at this location are performed us ing CT dose reduction for ALARA by means of automated exposure control CONTRAST: 100 ml of Omnipaque 350 FINDINGS: CTA Head: Intracranial vertebral arteries: No significant abnormality. Basilar artery: No significant abnormality. Posterior cerebral arteries: Atherosclerotic changes in right posterior cerebral artery at the P2 and P3 segments; Intracranial internal carotid arteries: Right internal carotid artery: Atherosclerotic disease in the cavernous segment of the right internal carotid artery and in the ophthalmic segment with 50% stenoses Left internal carotid artery: Atherosclerotic disease in the cavernous segment, ophthalmic segment and the communicating segment of the left internal carotid artery with 50% stenoses Anterior cerebral arteries: No significant abnormality. Middle cerebral arteries: Both M1 segments normal; Dural venous sinuses:Not optimally opacified. No significant abnormality. Additional findings: None. IMPRESSION: 50% stenoses in the cavernous segments of both internal carotid arteries Signer Name: Aric Ramirez MD Signed: 02/10/2022 12:02 AM Workstation Name: [id number] Transcribed By: BS Dictated By: Aric Amaro MD Electronically Authenticated By: Aric Amaro MD Signed Date/Time: 02/10/22 0002 DD/ 2348 TD/TT: - Medical Decision Making I discussed with the patient's daughter at length the risk versus benefits of tPA administration. Daughter opts to have tPA administered to the patient - Differential Diagnosis CVA, seizures Critical Care Time: Yes Critical care time in (mins) excluding proc time.: 30 Critical care attestation.: If time is entered above; I have spent that time in minutes in the direct care of this critically ill patient, excluding procedure time. ED Disposition Clinical Impression: CVA (cerebral vascular accident) Disposition: ADMITTED INPATIENT Is pt being admited?: Yes Does the pt Need Aspirin: No Condition: Serious Time of Disposition: 00:35 (Care transferred to hospitalist (Dr Anna))
--- NOTE | 2022-02-09 23:44 | Consultation ---
History of Present Illness History of present illness: [facility] Consult Note # Demographics Consult Type: Acute Stroke Level 1 (0-4.5 hrs) Patient Location: Emergency Room First Name: Judith Last Name: Tim Date of : 1945 Age: 76 Gender: Female Facility: [facility] Time of Initial Page (Eastern Time): 02/09/2022, 23:05 Time of Return Call (Eastern Time): 02/09/2022, 23:05 # HPI Chief Complaint: speech changes History: 74F with rheumatoid arthritis, HTN presents after unwitnessed fall with aphasia. Went into bathroom, five minutes daughter heard a loud sound and saw the patient up against the wall foaming at the mouth with the arms flexed up tight against the chest and legs stiff, lasted 10 seconds and then she slumped to the floor. LKWT 2226. 208/117. On lisinopril, prednisone. Fingerstick 176. Of note, had admission in 2020 with atrial fibrillation with RVR in setting of metabolic derangements, was not placed on anticoagulation. Last Known Normal: I have collected independent history specific to time last normal or last known well. We have collaborated with the provider and at this time, we have the most current timeline with the information that is available. Possible Thrombolytic candidate: not on warfarin or NOACs no intracranial hemorrhage history no recent major surgery no known active major internal bleeding no known blood disorders # Scores Time of exam and NIHSS ( Time): 02/09/2022, 23:08 Level of Consciousness 1a: [0] = Alert; keenly responsive LOC Questions 1b: [2] = Answers neither correctly LOC Commands 1c: [2] = Performs neither correctly Best Gaze 2: [0] = Normal Visual 3: [0] = No visual loss Facial Palsy 4: [0] = Normal symmetrical movements Motor Arm Left 5a: [0] = No drift Motor Arm Right 5b: [0] = No drift Motor Leg Left 6a: [3] = No effort against gravity Motor Leg Right 6b: [3] = No effort against gravity Limb Ataxia 7: [0] = Absent Sensory 8: [0] = Normal Best Language 9: [3] = Mute Dysarthria 10: [2] = Severe dysarthria Extinction and Inattention 11: [0] = No abnormality NIHSS Total: 15 # Data Time Head CT personally read by me ( Time): 02/09/2022, 23:[address]: no bleed CTA Head: preliminarily reviewed by me, please refer to radiology read for official reading L petrous ICA occlusion vs high grade stenosis CTA Neck: patent vessels preliminarily reviewed by me, please refer to radiology read for official reading # Assessment Impression: Ischemic Stroke (Acute) ?seizure vs posturing event # Plan Thrombolytic/Intervention: IV thrombolytic and possible IA candidate Thrombolytic Dosing: IV alteplase 0.9 mg/kg, max dose 90 mg; 10% of dose given over 1 minute IVP, remaining 90% given as infusion over 1 hour Possible IA Candidate: signs and symptoms of LVO pending official read from Time IV Thrombolytic Recommended (): 02/09/2022, 23:25 Thrombolytic Administration Recommendations: I have collected independent history specific to time last normal or last known well. We have collaborated with the ED provider and at this time, we have the most current timeline with the information that is available. BP goal< 180/105 for 24hrs post Thrombolytic administration Use Labetolol 10-20mg IV prn or Nicardipine gtt to maintain BP parameters No antiplatelets or anticoagulants for next 24 hrs unless indicated for emergent IA procedure or other life threatening situation Transfer to facility that is IA capable for consideration of mechanical thrombectomy # Logistics Telemedicine: Interactive 2 way audio and visual telecommunication technology was utilized during this visit Medications and Allergies Allergies Allergy/AdvReac Type Severity Reaction Status Date / Time aspirin Allergy Bleeding Verified 07/18/21 12:48 Home Medications Medication Instructions Recorded Confirmed Last Taken Type Folic Acid [Folvite] 1 mg PO DAILY 09/23/13 07/18/21 07/11/21 History Acetaminophen [Tylenol] 650 mg PO Q8H PRN 07/17/21 07/18/21 07/11/21 History Citalopram [celeXA] 20 mg PO QDAY 07/17/21 07/18/21 07/11/21 History predniSONE [Deltasone] 10 mg PO DAILY 07/17/21 07/18/21 07/11/21 History Lisinopril/Hydrochlorothiazide 1 tab PO QDAY 07/18/21 07/18/21 07/11/21 History [Zestoretic 20-12.5 mg] Pantoprazole Sodium 40 mg PO QDAY 07/18/21 07/18/21 07/11/21 History Simvastatin 40 mg PO QDAY 07/18/21 07/18/21 07/11/21 History Magnesium Oxide 250 mg PO DAILY #10 tablet 07/21/21 Unknown Rx
--- NOTE | 2022-02-09 23:46 | Cat Scan Report ---
CT head without contrast INDICATION : Altered mental status. TECHNIQUE: Axial imaging performed from the skull apex through the skull base without the use of con trast. All CT scans at this location are performed using CT dose reduction for ALARA by means of aut omated exposure control. COMPARISON: None FINDINGS: Parenchyma: No mass, stroke or hemorrhage. Chronic lacunar infarct right basal ganglia. Mild chronic changes of atrophy and small vessel ischemia. Ventricles: Ventricles are normal in size and appear symmetric. Soft tissues: Soft tissues including the orbits appear normal. Bones: No acute osseous abnormality. Sinuses: Sinuses and mastoid air cells are clear. IMPRESSION: No acute abnormality. Signer Name: Abhishek Camara MD Signed: 02/09/2022 11:41 PM Workstation Name: [id number]
[2022-02-09 23:50] LABS: Hematocrit 30.5 % (30.3-42.9); Hemoglobin 9.6 gm/dl (10.1-14.3); Mean Corpuscular HGB Conc 31 % (30-34); Mean Corpuscular Volume 80 fl (79-97); Platelet Count 410 K/mm3 (140-440); Red Blood Count 3.83 M/mm3 (3.65-5.03); Red Cell Distribution Width 19.1 % (13.2-15.2)
[2022-02-09] MEDS ORDERED: SODIUM CHLORIDE 0.9% 50 ML IVPB IV ONE (23:51)
[2022-02-09] MEDS ORDERED: ALTEPLASE 100 MG INJ KIT IV ONE ×2 (23:51)
[2022-02-09 23:55] LABS: Eosinophils % (Auto) 0.1 % (0.0-4.3); Monocytes # (Auto) 0.5 K/mm3 (0.0-0.8); Monocytes % (Auto) 4.1 % (0.0-7.3)
[2022-02-09 23:59] LABS: INR 1.14 (0.87-1.13); Partial Thromboplastin Time 27.7 Sec. (24.2-36.6)
--- NOTE | 2022-02-10 00:06 | Cat Scan Report ---
CTA NECK WITH CONTRAST HISTORY: Altered mental status COMPARISON: None. TECHNIQUE: Routine CTA of the neck was performed. 3-D/MIP reformats were postprocessed. Percentage s tenosis is determined by direct quantitative measurements of diseased internal carotid artery diamete r compared with normal distal internal carotid artery reference segments or by criteria similar to NA SCET where applicable.All CT scans at this location are performed using CT dose reduction for ALARA b y means of automated exposure control CONTRAST: 100 ml of Omnipaque 350 FINDINGS: Aortic arch: No significant abnormality. Cervical vertebral arteries: Right vertebral artery: Normal from origin to basilar formation Left vertebral artery: 50% stenoses at the origin of left vertebral artery; multiple focal areas of m inimal narrowing in the left vertebral artery up to basilar formation Common carotid arteries: No significant abnormality. Carotid bifurcations: Right carotid bifurcation: Normal Left carotid bifurcation: Atherosclerotic plaque with approximately 50% stenoses at the origin; soft plaque with focal calcification Cervical internal carotid arteries: No significant abnormality. Additional findings: None. IMPRESSION: Left carotid bifurcation: Soft plaque with focal calcification resulting in 50% stenoses of the proxi mal left internal carotid artery Right carotid bifurcation: Normal CTA HEAD WITH CONTRAST TECHNIQUE: Routine non-contrast CT Head, CTA of the head and post-contrast CT Head are performed. 3-D /MIP reformats postprocessed. All CT scans at this location are performed using CT dose reduction for ALARA by means of automated exposure control CONTRAST: 100 ml of Omnipaque 350 FINDINGS: CTA Head: Intracranial vertebral arteries: No significant abnormality. Basilar artery: No significant abnormality. Posterior cerebral arteries: Atherosclerotic changes in right posterior cerebral artery at the P2 and P3 segments; Intracranial internal carotid arteries: Right internal carotid artery: Atherosclerotic disease in the cavernous segment of the right internal carotid artery and in the ophthalmic segment with 50% stenoses Left internal carotid artery: Atherosclerotic disease in the cavernous segment, ophthalmic segment an d the communicating segment of the left internal carotid artery with 50% stenoses Anterior cerebral arteries: No significant abnormality. Middle cerebral arteries: Both M1 segments normal; Dural venous sinuses:Not optimally opacified. No significant abnormality. Additional findings: None. IMPRESSION: 50% stenoses in the cavernous segments of both internal carotid arteries Signer Name: Aric Ramirez MD Signed: 02/10/2022 12:02 AM Workstation Name: [id number]
[2022-02-10 00:07] LABS: Alanine Aminotransferase 8 units/L (7-56); Albumin 3.5 g/dL (3.9-5); BUN/Creatinine Ratio 11; Blood Urea Nitrogen 12 mg/dL (7-17); Calcium 7.1 mg/dL (8.4-10.2); Creatine Kinase MB 1.6 ng/mL (0.0-4.0); Hemolysis Index 1
[2022-02-10] MEDS ORDERED: levETIRAcetam 1000 MG/NS 0.75% 1,000 MG/100 ML BAG IV ONE (00:08)
[2022-02-10 00:17] LABS: Free T4 (Free Thyroxine) 1.55 ng/dL (0.76-1.46)
[2022-02-10] MEDS ORDERED: ACETAMINOPHEN 325 MG TAB PO PRN (01:00)
[2022-02-10] MEDS ORDERED: MAGNESIUM HYDROXIDE (MOM) ORAL LIQD UDC PO PRN ×2 (01:00)
[2022-02-10] MEDS ORDERED: PROMETHAZINE 25 MG RECT SUPP PR PRN (01:00)
[2022-02-10] MEDS ORDERED: ONDANSETRON 4 MG/2 ML INJ IV PRN ×2 (01:00)
[2022-02-10] MEDS ORDERED: METOCLOPRAMIDE 10 MG TAB PO PRN (01:00)
[2022-02-10] MEDS ORDERED: MORPHINE 2 MG/1 ML INJ IV PRN (01:00)
[2022-02-10] MEDS ORDERED: MORPHINE 4 MG/1 ML INJ IV PRN ×2 (01:00)
--- NOTE | 2022-02-10 01:11 | History and Physical Report ---
History of Present Illness Date of examination: 02/10/22 Date of admission: 02/10/2022 Chief complaint: Altered mental status History of present illness: 76-year-old female with known history of dementia, dementia, atrial fibrillation, presenting the emergency room today via EMS with changes in mental status. Daughter indicates that she had the mother fall in the bathroom. She she looked stiff was said to be foaming in the mouth will follow on the floor. There has been no history of seizure disorder. No fever or chills, no chest pain or shortness of breath. Daughter was by the bedside gave most of the information as patient's appears confused Work-up in the emergency room today, CT of the head shows no acute abnormality. CTA of the head/neck reveals soft plaque with focal calcification resulting in 50% stenosis of the proximal left internal carotid artery. Right carotid bifurcation is normal. Neurologist on-call was consulted and patient had tPA. Patient to be admitted into the intensive care unit status post tPA. Past History Past Medical History: arthritis, GERD, hypertension, other (Irregular heartbeat in the 90s, she is not sure what the diagnosis was. HPLD, ANXIETY, GERD, ARTHRITIS) Past Surgical History: appendectomy, cholecystectomy, Other (Hemorrhoidectomy) Social history: no significant social history Medications and Allergies Allergies Allergy/AdvReac Type Severity Reaction Status Date / Time aspirin Allergy Bleeding Verified 07/18/21 12:48 Home Medications Medication Instructions Recorded Confirmed Last Taken Type Folic Acid [Folvite] 1 mg PO DAILY 09/23/13 07/18/21 07/11/21 History Acetaminophen [Tylenol] 650 mg PO Q8H PRN 07/17/21 07/18/21 07/11/21 History Citalopram [celeXA] 20 mg PO QDAY 07/17/21 07/18/21 07/11/21 History predniSONE [Deltasone] 10 mg PO DAILY 07/17/21 07/18/21 07/11/21 History Lisinopril/Hydrochlorothiazide 1 tab PO QDAY 07/18/21 07/18/21 07/11/21 History [Zestoretic 20-12.5 mg] Pantoprazole Sodium 40 mg PO QDAY 07/18/21 07/18/21 07/11/21 History Simvastatin 40 mg PO QDAY 07/18/21 07/18/21 07/11/21 History Magnesium Oxide 250 mg PO DAILY #10 tablet 07/21/21 Unknown Rx Review of Systems ROS unobtainable: due to mental status Exam - Constitutional Vitals: Temp Pulse Resp BP Pulse Ox 98.7 F 78 19 190/85 97 02/09/22 23:44 02/10/22 01:00 02/10/22 01:00 02/10/22 01:00 02/10/22 01:02 General appearance: Present: no acute distress, well-nourished - EENT Eyes: Present: PERRL, EOM intact. Absent: scleral icterus ENT: hearing intact, clear oral mucosa, dentition normal - Neck Neck: Present: supple, normal ROM - Respiratory Respiratory effort: normal Respiratory: bilateral: CTA - Cardiovascular Rhythm: regular Heart Sounds: Present: S1 & S2. Absent: gallop, systolic murmur, diastolic murmur, rub, click - Extremities Extremities: no ischemia, pulses intact, pulses symmetrical, No edema, normal temperature, Full ROM Peripheral Pulses: within normal limits - Abdominal General gastrointestinal: Present: soft, non-tender, non-distended, normal bowel sounds. Absent: mass - Integumentary Integumentary: Present: clear, warm, dry, normal turgor. Absent: rash - Musculoskeletal Musculoskeletal: strength equal bilaterally - Psychiatric Psychiatric: appropriate mood/affect, intact judgment & insight, memory intact, cooperative - Neurologic Neurologic: CNII-XII intact, no focal deficits, moves all extremities HEART Score - HEART Score Troponin: Troponin T < 0.010 ng/mL (0.00-0.029) 02/09/22 23:36 Results - Labs CBC & Chem 7: 02/09/22 23:36 02/09/22 23:36 Labs: Abnormal lab results 02/09/22 02/09/22 02/09/22 Range/Units 23:36 23:36 23:36 WBC 12.7 H (4.5-11.0) K/mm3 Hgb 9.6 L (10.1-14.3) gm/dl MCH 25 L (28-32) pg RDW 19.1 H (13.2-15.2) % Seg Neutrophils % 77.2 H (40.0-70.0) % Seg Neutrophils # 10.2 H (1.8-7.7) K/mm3 PT 15.9 H (12.2-14.9) Sec. INR 1.14 H (0.87-1.13) Potassium 3.2 L (3.6-5.0) mmol/L Glucose 192 H (65-100) mg/dL Calcium 7.1 L (8.4-10.2) mg/dL Ammonia (25-60) umol/L Total Creatine Kinase 147 H (30-135) units/L Albumin 3.5 L (3.9-5) g/dL Free T4 (0.76-1.46) ng/dL 02/09/22 02/09/22 Range/Units 23:36 23:36 WBC (4.5-11.0) K/mm3 Hgb (10.1-14.3) gm/dl MCH (28-32) pg RDW (13.2-15.2) % Seg Neutrophils % (40.0-70.0) % Seg Neutrophils # (1.8-7.7) K/mm3 PT (12.2-14.9) Sec. INR (0.87-1.13) Potassium (3.6-5.0) mmol/L Glucose (65-100) mg/dL Calcium (8.4-10.2) mg/dL Ammonia 20.0 L (25-60) umol/L Total Creatine Kinase (30-135) units/L Albumin (3.9-5) g/dL Free T4 1.55 H (0.76-1.46) ng/dL Assessment and Plan - Patient Problems (1) CVA (cerebral vascular accident) Current Visit: No Status: Acute Plan to address problem: Patient is status post tPA. Will monitor closely in the intensive care unit. Consult placed to neurology for evaluation and recommendations. Will also schedule for EEG of the brain Neurology evaluation and follow-up requested (2) Hypocalcemia Current Visit: No Status: Acute Plan to address problem: Will replace calcium and monitor chemistry. (3) Hypokalemia Current Visit: No Status: Acute Plan to address problem: Potassium will be repleted and will monitor chemistry. (4) Hypomagnesemia Current Visit: No Status: Acute Plan to address problem: We will replete magnesium. (5) Hyperlipidemia Onset Date: 09/23/13 Current Visit: No Status: Chronic Plan to address problem: Continue patient on her routine home medications. (6) Hypertension Onset Date: 09/23/13 Current Visit: No Status: Chronic Plan to address problem: Resume routine home medications and monitor vital signs closely. (7) DVT prophylaxis Current Visit: No Status: Acute Plan to address problem: Sequential compression device. (8) Full code status Current Visit: No Status: Acute Plan to address problem: Patient is full code.
[2022-02-10] MEDS ORDERED: CALCIUM GLUCONATE 1,000 MG in SODIUM CHLORIDE 0.9% 100 ML IV ONE (07:55)
[2022-02-10] MEDS ORDERED: POTASSIUM CHLORIDE 10 MEQ 10 MEQ/100 ML BAG IV ONE (07:59)
[2022-02-10 08:05] LABS: Bacteria,Urine 4+ /HPF (Negative); Mucus,Urine 1+ /HPF
[2022-02-10 08:25] LABS: Basophils % (Manual) 0 % (0.0-1.8); Eosinophils % (Manual) 0 % (0.0-4.3); Monocytes % (Manual) 0 % (0.0-7.3); Total Cells Counted 100
[2022-02-10 08:26] LABS: Anisocytosis 1+; Platelet Estimate Consistent w Auto; Poikilocytosis 1+; Spherocytes 1+
[2022-02-10 11:13] LABS: Bilirubin,Urine NEG (Negative); Blood,Urine MOD (Negative); Color,Urine Amber (Yellow)
[2022-02-10 12:23] LABS: Chol/HDL Ratio 3.36 %
--- NOTE | 2022-02-10 15:09 | Progress Note ---
Assessment and Plan Assessment and Plan - Patient Problems (1) CVA (cerebral vascular accident) Current Visit: No Status: Acute Plan to address problem: Patient is status post tPA. Will monitor closely in the intensive care unit. Consult placed to neurology for evaluation and recommendations. Will also schedule for EEG of the brain Neurology evaluation and follow-up requested MRI and echocardiogram still pending (2) Hypocalcemia Current Visit: No Status: Acute Plan to address problem: Will replace calcium and monitor chemistry. (3) Hypokalemia Current Visit: No Status: Acute Plan to address problem: Supplemented and corrected (4) Hypomagnesemia Current Visit: No Status: Acute Plan to address problem: Supplemented and corrected. (5) Hyperlipidemia Onset Date: 09/23/13 Current Visit: No Status: Chronic Plan to address problem: High-dose statins ons. (6) Hypertension Onset Date: 09/23/13 Current Visit: No Status: Chronic Plan to address problem: Blood pressure under control (7) DVT prophylaxis Current Visit: No Status: Acute Plan to address problem: Sequential compression device. (8) Full code status Current Visit: No Status: Acute Plan to address problem: Patient is full code. Critical care statement The high probability OF a clinically significant sudden or life-threatening dete rioration of the cardiorespiratory system and endocrine system required my full and direct attention, intervention and postoperative management. The aggregate critical care time was 40 minutes. The time is in addition to time spent performing reported procedures but includes the followin: Data review and interpretation 2: Patient assessment and monitoring of vital signs 3: Documentation 4:: Medication orders and management Subjective Date of service: 02/10/22 Principal diagnosis: Acute CVA, encephalopathy Interval history: 76-year-old female with known history of dementia, dementia, atrial fib rillation, presenting the emergency room today via EMS with changes in mental status. Daughter indicates that she had the mother fall in the bathroom. She she looked stiff was said to be foaming in the mouth will follow on the floor. There has been no history of seizure disorder. No fever or chills, no chest pain or shortness of breath. Daughter was by the bedside gave most of the information as patient's appears confused Work-up in the emergency room today, CT of the head shows no acute abnormality. CTA of the head/neck reveals soft plaque with focal calcification resulting in 50% stenosis of the proximal left internal carotid artery. Right carotid bifurcation is normal. Neurologist on-call was consulted and patient had tPA. Patient to be admitted into the intensive care unit status post tPA. 02/10/2022 Patient able to move all 4 extremities MRI and echocardiogram pending Objective - Constitutional Vitals: Vital Signs - 12hr 02/10/22 02/10/22 02/10/22 03:15 03:30 03:31 Temperature Pulse Rate 77 82 Pulse Rate [ From Monitor] Pulse Rate [ 82 Left Arm] Respiratory 25 H 26 H Rate Respiratory 26 H Rate [Left Arm] Blood Pressure 176/80 179/72 Blood Pressure 179/72 [Left Arm] O2 Sat by Pulse 96 98 Oximetry O2 Sat by Pulse 98 Oximetry [Left Arm] 02/10/22 02/10/22 02/10/22 03:45 04:00 04:01 Temperature Pulse Rate 95 H 93 H Pulse Rate [ From Monitor] Pulse Rate [ 93 H Left Arm] Respiratory 23 15 Rate Respiratory 15 Rate [Left Arm] Blood Pressure 155/81 177/75 Blood Pressure 177/75 [Left Arm] O2 Sat by Pulse 98 99 Oximetry O2 Sat by Pulse 99 Oximetry [Left Arm] 02/10/22 02/10/22 02/10/22 04:15 04:30 04:31 Temperature Pulse Rate 65 74 Pulse Rate [ From Monitor] Pulse Rate [ 74 Left Arm] Respiratory 26 H 17 Rate Respiratory 17 Rate [Left Arm] Blood Pressure 162/65 176/64 Blood Pressure 176/74 [Left Arm] O2 Sat by Pulse 98 98 Oximetry O2 Sat by Pulse 98 Oximetry [Left Arm] 02/10/22 02/10/22 02/10/22 04:45 05:00 05:01 Temperature Pulse Rate 73 77 Pulse Rate [ From Monitor] Pulse Rate [ 77 Left Arm] Respiratory 23 19 Rate Respiratory 19 Rate [Left Arm] Blood Pressure 169/89 157/60 Blood Pressure 157/60 [Left Arm] O2 Sat by Pulse 99 100 Oximetry O2 Sat by Pulse 100 Oximetry [Left Arm] 02/10/22 02/10/22 02/10/22 05:15 05:30 05:31 Temperature Pulse Rate 80 75 Pulse Rate [ From Monitor] Pulse Rate [ 75 Left Arm] Respiratory 12 20 Rate Respiratory 20 Rate [Left Arm] Blood Pressure 155/128 113/59 Blood Pressure 113/59 [Left Arm] O2 Sat by Pulse 97 99 Oximetry O2 Sat by Pulse 99 Oximetry [Left Arm] 02/10/22 02/10/22 02/10/22 05:45 06:00 06:01 Temperature Pulse Rate 72 69 Pulse Rate [ From Monitor] Pulse Rate [ 69 Left Arm] Respiratory 20 22 Rate Respiratory 22 Rate [Left Arm] Blood Pressure 113/59 113/59 Blood Pressure 113/59 [Left Arm] O2 Sat by Pulse 97 98 Oximetry O2 Sat by Pulse 98 Oximetry [Left Arm] 02/10/22 02/10/22 02/10/22 06:15 06:31 06:33 Temperature Pulse Rate 83 67 Pulse Rate [ From Monitor] Pulse Rate [ 67 Left Arm] Respiratory 24 16 Rate Respiratory 16 Rate [Left Arm] Blood Pressure 113/59 161/62 Blood Pressure 161/62 [Left Arm] O2 Sat by Pulse 98 98 Oximetry O2 Sat by Pulse 98 Oximetry [Left Arm] 02/10/22 02/10/22 02/10/22 06:41 06:51 07:00 Temperature Pulse Rate 69 70 Pulse Rate [ From Monitor] Pulse Rate [ 70 Left Arm] Respiratory 24 12 Rate Respiratory 18 Rate [Left Arm] Blood Pressure 161/62 135/80 Blood Pressure 135/80 [Left Arm] O2 Sat by Pulse 98 99 Oximetry O2 Sat by Pulse 99 Oximetry [Left Arm] 02/10/22 02/10/22 02/10/22 07:01 07:11 07:21 Temperature Pulse Rate 74 70 75 Pulse Rate [ From Monitor] Pulse Rate [ Left Arm] Respiratory 27 H 24 30 H Rate Respiratory Rate [Left Arm] Blood Pressure 135/80 161/62 160/74 Blood Pressure [Left Arm] O2 Sat by Pulse 98 99 99 Oximetry O2 Sat by Pulse Oximetry [Left Arm] 02/10/22 02/10/22 02/10/22 07:30 07:31 07:41 Temperature Pulse Rate 75 70 Pulse Rate [ From Monitor] Pulse Rate [ 79 Left Arm] Respiratory 32 H 17 Rate Respiratory 18 Rate [Left Arm] Blood Pressure 160/74 160/74 Blood Pressure 160/74 [Left Arm] O2 Sat by Pulse 99 99 Oximetry O2 Sat by Pulse 98 Oximetry [Left Arm] 02/10/22 02/10/22 02/10/22 07:51 08:08 08:10 Temperature Pulse Rate 73 75 81 Pulse Rate [ From Monitor] Pulse Rate [ Left Arm] Respiratory 24 17 Rate Respiratory Rate [Left Arm] Blood Pressure 163/65 Blood Pressure [Left Arm] O2 Sat by Pulse 98 Oximetry O2 Sat by Pulse Oximetry [Left Arm] 02/10/22 02/10/22 02/10/22 08:21 08:31 08:41 Temperature 99.1 F Pulse Rate 87 74 71 Pulse Rate [ From Monitor] Pulse Rate [ Left Arm] Respiratory 16 20 18 Rate Respiratory Rate [Left Arm] Blood Pressure 141/61 141/61 Blood Pressure [Left Arm] O2 Sat by Pulse Oximetry O2 Sat by Pulse Oximetry [Left Arm] 02/10/22 02/10/22 02/10/22 08:51 09:01 09:11 Temperature Pulse Rate 88 71 70 Pulse Rate [ From Monitor] Pulse Rate [ Left Arm] Respiratory 15 23 24 Rate Respiratory Rate [Left Arm] Blood Pressure 141/61 162/45 162/45 Blood Pressure [Left Arm] O2 Sat by Pulse 99 98 99 Oximetry O2 Sat by Pulse Oximetry [Left Arm] 02/10/22 02/10/22 02/10/22 09:21 09:30 09:41 Temperature Pulse Rate 69 70 70 Pulse Rate [ From Monitor] Pulse Rate [ Left Arm] Respiratory 16 11 L 13 Rate Respiratory Rate [Left Arm] Blood Pressure 162/45 166/68 166/68 Blood Pressure [Left Arm] O2 Sat by Pulse 99 98 98 Oximetry O2 Sat by Pulse Oximetry [Left Arm] 02/10/22 02/10/22 02/10/22 09:51 10:00 10:11 Temperature Pulse Rate 70 70 85 Pulse Rate [ 80 From Monitor] Pulse Rate [ Left Arm] Respiratory 26 H 19 23 Rate Respiratory Rate [Left Arm] Blood Pressure 166/68 127/66 127/66 Blood Pressure [Left Arm] O2 Sat by Pulse 100 98 Oximetry O2 Sat by Pulse Oximetry [Left Arm] 02/10/22 02/10/22 02/10/22 10:20 10:30 10:41 Temperature Pulse Rate 84 71 72 Pulse Rate [ From Monitor] Pulse Rate [ Left Arm] Respiratory 16 17 24 Rate Respiratory Rate [Left Arm] Blood Pressure 127/66 127/66 127/66 Blood Pressure [Left Arm] O2 Sat by Pulse Oximetry O2 Sat by Pulse Oximetry [Left Arm] 02/10/22 02/10/22 02/10/22 10:51 11:00 11:11 Temperature Pulse Rate 70 77 69 Pulse Rate [ From Monitor] Pulse Rate [ Left Arm] Respiratory 22 10 L 19 Rate Respiratory Rate [Left Arm] Blood Pressure 145/64 149/57 149/57 Blood Pressure [Left Arm] O2 Sat by Pulse 99 99 98 Oximetry O2 Sat by Pulse Oximetry [Left Arm] 02/10/22 02/10/22 02/10/22 11:21 11:31 11:41 Temperature Pulse Rate 71 78 69 Pulse Rate [ From Monitor] Pulse Rate [ Left Arm] Respiratory 19 24 21 Rate Respiratory Rate [Left Arm] Blood Pressure 149/57 149/57 149/57 Blood Pressure [Left Arm] O2 Sat by Pulse 100 100 100 Oximetry O2 Sat by Pulse Oximetry [Left Arm] 02/10/22 02/10/22 02/10/22 11:51 12:00 12:01 Temperature Pulse Rate 66 72 75 Pulse Rate [ 70 From Monitor] Pulse Rate [ Left Arm] Respiratory 20 12 23 Rate Respiratory Rate [Left Arm] Blood Pressure 149/57 139/62 Blood Pressure [Left Arm] O2 Sat by Pulse 99 100 98 Oximetry O2 Sat by Pulse Oximetry [Left Arm] 02/10/22 02/10/22 02/10/22 12:11 12:19 12:21 Temperature 97.9 F Pulse Rate 69 73 Pulse Rate [ From Monitor] Pulse Rate [ Left Arm] Respiratory 30 H 15 Rate Respiratory Rate [Left Arm] Blood Pressure 139/62 139/62 Blood Pressure [Left Arm] O2 Sat by Pulse 100 99 Oximetry O2 Sat by Pulse Oximetry [Left Arm] 02/10/22 02/10/22 02/10/22 12:31 12:41 12:51 Temperature Pulse Rate 73 72 65 Pulse Rate [ From Monitor] Pulse Rate [ Left Arm] Respiratory 19 25 H 20 Rate Respiratory Rate [Left Arm] Blood Pressure 139/62 116/69 116/69 Blood Pressure [Left Arm] O2 Sat by Pulse 100 100 100 Oximetry O2 Sat by Pulse Oximetry [Left Arm] 02/10/22 02/10/22 02/10/22 13:00 13:11 13:21 Temperature Pulse Rate 71 66 69 Pulse Rate [ From Monitor] Pulse Rate [ Left Arm] Respiratory 15 26 H 29 H Rate Respiratory Rate [Left Arm] Blood Pressure 132/62 132/62 132/62 Blood Pressure [Left Arm] O2 Sat by Pulse 99 99 98 Oximetry O2 Sat by Pulse Oximetry [Left Arm] 02/10/22 02/10/22 02/10/22 13:31 13:41 13:51 Temperature Pulse Rate 69 68 67 Pulse Rate [ From Monitor] Pulse Rate [ Left Arm] Respiratory 28 H 24 21 Rate Respiratory Rate [Left Arm] Blood Pressure 150/66 150/66 150/66 Blood Pressure [Left Arm] O2 Sat by Pulse 98 100 100 Oximetry O2 Sat by Pulse Oximetry [Left Arm] 02/10/22 02/10/22 14:01 14:11 Temperature Pulse Rate 80 70 Pulse Rate [ From Monitor] Pulse Rate [ Left Arm] Respiratory 26 H 21 Rate Respiratory Rate [Left Arm] Blood Pressure 127/67 127/67 Blood Pressure [Left Arm] O2 Sat by Pulse 100 99 Oximetry O2 Sat by Pulse Oximetry [Left Arm] General appearance: Present: no acute distress, well-nourished - EENT Eyes: PERRL, EOM intact ENT: hearing intact, clear oral mucosa Ears: bilateral: normal - Neck Neck: supple, normal ROM - Respiratory Respiratory effort: normal Respiratory: bilateral: CTA - Breasts Breasts: normal - Cardiovascular Heart rate: 78 Rhythm: regular Heart Sounds: Present: S1 & S2. Absent: gallop, rub Extremities: pulses intact, No edema, normal color, Full ROM - Gastrointestinal General gastrointestinal: Present: soft, non-tender, non-distended, normal bowel sounds - Genitourinary Female genitourinary: normal - Integumentary Integumentary: clear, warm, dry - Musculoskeletal Musculoskeletal: 1, strength equal bilaterally - Neurologic Neurologic: moves all extremities - Psychiatric Psychiatric: memory intact, appropriate mood/affect, intact judgment & insight - Labs CBC & Chem 7: 02/11/22 05:40 02/11/22 05:40 Labs: Abnormal lab results 02/09/22 02/09/22 02/09/22 Range/Units 01:40 23:36 23:36 WBC 12.7 H (4.5-11.0) K/mm3 Hgb 9.6 L (10.1-14.3) gm/dl MCH 25 L (28-32) pg RDW 19.1 H (13.2-15.2) % Seg Neutrophils % 77.2 H (40.0-70.0) % Seg Neuts % (Manual) 86.0 H (40.0-70.0) % Seg Neutrophils # 10.2 H (1.8-7.7) K/mm3 Seg Neutrophils # Man 10.9 H (1.8-7.7) K/mm3 PT 15.9 H (12.2-14.9) Sec. INR 1.14 H (0.87-1.13) Potassium (3.6-5.0) mmol/L Glucose (65-100) mg/dL Calcium (8.4-10.2) mg/dL Ammonia (25-60) umol/L Total Creatine Kinase (30-135) units/L Albumin (3.9-5) g/dL Free T4 (0.76-1.46) ng/dL Ur Specific [place] 1.055 H (1.003-1.030) Urine WBC (Auto) 25.0 H (0.0-6.0) /HPF U Epithel Cells (Auto) 34.0 H (0-13.0) /HPF 02/09/22 02/09/22 02/09/22 Range/Units 23:36 23:36 23:36 WBC (4.5-11.0) K/mm3 Hgb (10.1-14.3) gm/dl MCH (28-32) pg RDW (13.2-15.2) % Seg Neutrophils % (40.0-70.0) % Seg Neuts % (Manual) (40.0-70.0) % Seg Neutrophils # (1.8-7.7) K/mm3 Seg Neutrophils # Man (1.8-7.7) K/mm3 PT (12.2-14.9) Sec. INR (0.87-1.13) Potassium 3.2 L (3.6-5.0) mmol/L Glucose 192 H (65-100) mg/dL Calcium 7.1 L (8.4-10.2) mg/dL Ammonia 20.0 L (25-60) umol/L Total Creatine Kinase 147 H (30-135) units/L Albumin 3.5 L (3.9-5) g/dL Free T4 1.55 H (0.76-1.46) ng/dL Ur Specific [place] (1.003-1.030) Urine WBC (Auto) (0.0-6.0) /HPF U Epithel Cells (Auto) (0-13.0) /HPF CTA of the head and neck 50% stenosis in the cavernous segments of both internal carotid arteries HEART Score - HEART Score Troponin: Troponin T < 0.010 ng/mL (0.00-0.029) 02/09/22 23:36
[2022-02-10 16:16] LABS: BUN/Creatinine Ratio 14; Blood Urea Nitrogen 14 mg/dL (7-17); Calcium 7.3 mg/dL (8.4-10.2); Hemolysis Index 0
[2022-02-10] MEDS: ACETAMINOPHEN 325 MG TAB PO PRN (16:23)
--- NOTE | 2022-02-10 17:27 | Consultation ---
History of Present Illness Consult date: 02/10/22 Requesting physician: ROSALIND RUBI Reason for consult: other (Stroke s/p TPA) History of present illness: 76-year-old female with known history of dementia, dementia, atrial fibrillation, presenting the emergency room today via EMS with changes in mental status. Daughter indicates that she had the mother fall in the bathroom. She she looked stiff was said to be foaming in the mouth will follow on the floor. There has been no history of seizure disorder. No fever or chills, no chest pain or shortness of breath. Daughter was by the bedside gave most of the information as patient's appears confused Work-up in the emergency room today, CT of the head shows no acute abnormality. CTA of the head/neck reveals soft plaque with focal calcification resulting in 50% stenosis of the proximal left internal carotid artery. Right carotid bifurcation is normal. Neurologist on-call was consulted and patient had tPA. Patient to be admitted into the intensive care unit status post tPA and a critical care consult was placed Patient seen and examined. Vitals, labs,medications, chart reviewed. Not in any distress. Daughter is visiting at the bedside Past History Past Medical History: arthritis, GERD, hypertension, other (Irregular heartbeat in the 90s, she is not sure what the diagnosis was. HPLD, ANXIETY, GERD, ARTHRITIS) Past Surgical History: appendectomy, cholecystectomy, Other (Hemorrhoidectomy) Social history: no significant social history Medications and Allergies Allergies Allergy/AdvReac Type Severity Reaction Status Date / Time aspirin Allergy Bleeding Verified 07/18/21 12:48 Home Medications Medication Instructions Recorded Confirmed Last Taken Type Acetaminophen [Tylenol] 650 mg PO Q8H PRN 07/17/21 02/10/22 07/11/21 History Citalopram [celeXA] 20 mg PO QDAY 07/17/21 02/10/22 02/08/22 History predniSONE [Deltasone] 10 mg PO DAILY 07/17/21 02/10/22 02/08/22 History Lisinopril/Hydrochlorothiazide 20 mg PO QDAY 07/18/21 02/10/22 02/08/22 History [Zestoretic 20-12.5 mg] AtorvaSTATin 1 tab PO DAILY 02/10/22 02/10/22 02/08/22 History Inderal Xl 1 tab PO TID 02/10/22 02/10/22 Unknown History Megestrol 5 ml PO DAILY 02/10/22 02/10/22 02/08/22 History Memantine 1 tab PO DAILY 02/10/22 02/10/22 02/08/22 History Omeprazole 20 mg PO DAILY 02/10/22 02/10/22 02/08/22 History carvediloL [Coreg] 12.5 mg PO BID 02/10/22 02/10/22 02/08/22 History traMADoL [Ultram 50 MG tab] 1 tab PO BID PRN 02/10/22 02/10/22 Unknown History Active Meds: Active Medications Acetaminophen (Acetaminophen 325 Mg Tab) 650 mg PO Q6H PRN PRN Reason: Pain MILD(1-3)/Fever >100.5/RUELAS Last Admin: 02/10/22 16:23 Dose: 650 mg Atorvastatin Calcium (Atorvastatin 40 Mg Tab) 40 mg PO QHS MIHAELA Bisacodyl (Bisacodyl 10 Mg Rect Supp) 10 mg [place] QDAY PRN PRN Reason: Constipation Magnesium Sulfate (Magnesium Sulfate 4gm/100ml) 4 gm in 100 mls @ 25 mls/hr IV ONCE ONE Stop: 02/10/22 21:20 Magnesium Hydroxide (Magnesium Hydroxide (Mom) Oral Liqd Udc) 30 ml PO Q4H PRN PRN Reason: Constipation Metoclopramide HCl (Metoclopramide 10 Mg Tab) 10 mg PO Q6H PRN PRN Reason: Nausea And Vomiting Morphine Sulfate (Morphine 4 Mg/1 Ml Inj) 4 mg IV Q4H PRN PRN Reason: Pain , Severe (7-10) Morphine Sulfate (Morphine 2 Mg/1 Ml Inj) 2 mg IV Q4H PRN PRN Reason: Pain, Moderate (4-6) Ondansetron HCl (Ondansetron 4 Mg/2 Ml Inj) 4 mg IV Q8H PRN PRN Reason: Nausea And Vomiting Last Admin: 02/10/22 01:50 Dose: 4 mg Potassium Chloride (Potassium Chloride Er 20 Meq Tab) 40 meq PO ONCE ONE Stop: 02/10/22 17:23 Promethazine HCl (Promethazine 25 Mg Rect Supp) 25 mg [place] Q6H PRN PRN Reason: Nausea And Vomiting Sodium Chloride (Sodium Chloride 0.9% 10 Ml Flush Syringe) 10 ml IV BID MIHAELA Last Admin: 02/10/22 10:20 Dose: 10 ml Sodium Chloride (Sodium Chloride 0.9% 10 Ml Flush Syringe) 10 ml IV PRN PRN PRN Reason: LINE FLUSH Review of Systems Constitutional: no weight loss, no weight gain, no fever, no chills Cardiovascular: no chest pain, no orthopnea, no palpitations, no edema Respiratory: no cough, no cough with sputum, no excessive sputum, no hemoptysis, no shortness of breath Gastrointestinal: no abdominal pain, no nausea, no vomiting, no constipation Neurological: no paralysis, no weakness, no parathesias, no tingling, no seizu res Physical Examination Vital signs: Vital Signs Pulse Resp 91 H 19 02/09/22 23:38 02/09/22 23:38 Results - Laboratory Findings CBC and BMP: 02/09/22 23:36 02/10/22 11:44 PT/INR, D-dimer PT 15.9 Sec. (12.2-14.9) H 02/09/22 23:36 INR 1.14 (0.87-1.13) H 02/09/22 23:36 Abnormal lab findings: Abnormal Labs 02/09/22 02/09/22 02/09/22 01:40 23:36 23:36 WBC 12.7 H Hgb 9.6 L MCH 25 L RDW 19.1 H Seg Neutrophils % 77.2 H Seg Neuts % (Manual) 86.0 H Seg Neutrophils # 10.2 H Seg Neutrophils # Man 10.9 H PT 15.9 H INR 1.14 H Potassium Glucose Calcium Magnesium Ammonia Total Creatine Kinase Albumin Free T4 Ur Specific [place] 1.055 H Urine WBC (Auto) 25.0 H U Epithel Cells (Auto) 34.0 H 02/09/22 02/09/22 02/09/22 23:36 23:36 23:36 WBC Hgb MCH RDW Seg Neutrophils % Seg Neuts % (Manual) Seg Neutrophils # Seg Neutrophils # Man PT INR Potassium 3.2 L Glucose 192 H Calcium 7.1 L Magnesium Ammonia 20.0 L Total Creatine Kinase 147 H Albumin 3.5 L Free T4 1.55 H Ur Specific [place] Urine WBC (Auto) U Epithel Cells (Auto) 02/10/22 11:44 WBC Hgb MCH RDW Seg Neutrophils % Seg Neuts % (Manual) Seg Neutrophils # Seg Neutrophils # Man PT INR Potassium 3.3 L Glucose 107 H Calcium 7.3 L Magnesium 0.30 L* Ammonia Total Creatine Kinase Albumin Free T4 Ur Specific [place] Urine WBC (Auto) U Epithel Cells (Auto) - Diagnostic Findings Additional studies: CTA NECK WITH CONTRAST IMPRESSION: Left carotid bifurcation: Soft plaque with focal calcification resulting in 50% stenoses of the proximal left internal carotid artery. Right carotid bifurcation: Normal CTA HEAD WITH CONTRAST IMPRESSION: 50% stenoses in the cavernous segments of both internal carotid arteries Assessment and Plan CVA (cerebral vascular accident) s/p tPA Hypertension Hyperlipidemia Electrolyte abnormalities Recommendations Neurochecks per protocol BP goal< 180/105 for 24hrs post Thrombolytic administration Use Labetolol 10-20mg IV prn or Nicardipine gtt to maintain BP parameters No antiplatelets or anticoagulants for next 24 hrs unless indicated for emergent IA procedure or other life threatening situation Secondary stroke prophylaxis Follow up MRI brain, get transthoracic echocardiography In patient neurology consult [employer]OR/PT/OT to evaluate and treat Replete all electrolytes as clinically indicated SCDs for VTE prophylaxis Updated the patient and her daughter at the bedside Answered all their questions, the patient is full code in the event of cardiopulmonary arrest. CC time 33 minutes
[2022-02-10] MEDS ORDERED: MAGNESIUM SULFATE 4 GM/100 ML BAG IV ONE (18:00)
[2022-02-10] MEDS ORDERED: POTASSIUM CHLORIDE ER 20 MEQ TAB PO ONE (18:00)
--- NOTE | 2022-02-11 01:29 | Cat Scan Report ---
CT head without contrast INDICATION : F/U 24hrs post TPA. TECHNIQUE: Axial imaging performed from the skull apex through the skull base without the use of con trast. All CT scans at this location are performed using CT dose reduction for ALARA by means of aut omated exposure control. COMPARISON: Previous day. FINDINGS: Parenchyma: No mass, stroke or hemorrhage.Chronic lacunar infarct right basal ganglia and mild atroph y/chronic small vessel ischemia remains. Ventricles: Ventricles are normal in size and appear symmetric. Soft tissues: Soft tissues including the orbits appear normal. Bones: No acute osseous abnormality. Sinuses: Sinuses and mastoid air cells are clear. IMPRESSION: No significant change from the previous day. Signer Name: Abhishek Camara MD Signed: 02/11/2022 1:24 AM Workstation Name: [id number]
[2022-02-11 07:09] LABS: Basophils # (Auto) 0.1 K/mm3 (0.0-0.1); Basophils % (Auto) 0.5 % (0.0-1.8); Eosinophils # (Auto) 0.1 K/mm3 (0.0-0.4); Eosinophils % (Auto) 0.6 % (0.0-4.3); Hematocrit 27.1 % (30.3-42.9); Hemoglobin 8.7 gm/dl (10.1-14.3); Lymphocytes # (Auto) 3.2 K/mm3 (1.2-5.4); Mean Corpuscular HGB Conc 32 % (30-34); Mean Corpuscular Volume 79 fl (79-97); Monocytes # (Auto) 0.6 K/mm3 (0.0-0.8); Monocytes % (Auto) 5.4 % (0.0-7.3); Platelet Count 308 K/mm3 (140-440); Red Blood Count 3.43 M/mm3 (3.65-5.03); Red Cell Distribution Width 19.3 % (13.2-15.2)
[2022-02-11 07:16] LABS: INR 1.09 (0.87-1.13)
[2022-02-11 07:32] LABS: BUN/Creatinine Ratio 10; Blood Urea Nitrogen 10 mg/dL (7-17); Calcium 6.9 mg/dL (8.4-10.2); Hemolysis Index 0
[2022-02-11] MEDS: ACETAMINOPHEN 325 MG TAB PO PRN (09:50)
[2022-02-11] MEDS ORDERED: POTASSIUM CHLORIDE ER 20 MEQ TAB PO ONE ×2 (10:00→12:00)
[2022-02-11] MEDS ORDERED: MAGNESIUM SULFATE 4 GM/100 ML BAG IV ONE (10:00)
[2022-02-11] MEDS: MORPHINE 2 MG/1 ML INJ IV PRN ×2 (10:15→16:08)
--- NOTE | 2022-02-11 11:35 | Progress Note ---
Assessment and Plan Assessment and Plan - Patient Problems (1) CVA (cerebral vascular accident) Current Visit: No Status: Acute Plan to address problem: Patient is status post tPA. Will monitor closely in the intensive care unit. Consult placed to neurology for evaluation and recommendations. Will also schedule for EEG of the brain Neurology evaluation and follow-up requested MRI and echocardiogram still pending (2) Hypocalcemia Current Visit: No Status: Acute Plan to address problem: Will replace calcium and monitor chemistry. (3) Hypokalemia Current Visit: No Status: Acute Plan to address problem: Supplemented again Potassium is 3.2 (4) Hypomagnesemia Current Visit: No Status: Acute Plan to address problem: Magnesium is 1.6 Supplemented again (5) Hyperlipidemia Onset Date: 09/23/13 Current Visit: No Status: Chronic Plan to address problem: High-dose statins (6) Hypertension Onset Date: 09/23/13 Current Visit: No Status: Chronic Plan to address problem: Blood pressure under control (7) DVT prophylaxis Current Visit: No Status: Acute Plan to address problem: Sequential compression device. (8) Full code status Current Visit: No Status: Acute Plan to address problem: Patient is full code. Critical care statement The high probability OF a clinically significant sudden or life-threatening deterioration of the cardiorespiratory system and endocrine system required my full and direct attention, intervention and postoperative management. The aggregate critical care time was 40 minutes. The time is in addition to time spent performing reported procedures but includes the followin: Data review and interpretation 2: Patient assessment and monitoring of vital signs 3: Documentation 4:: Medication orders and management Transfer to telemetry Subjective Date of service: 02/11/22 Principal diagnosis: Acute CVA, encephalopathy Interval history: 76-year-old female with known history of dementia, dementia, atrial fibrillation, presenting the emergency room today via EMS with changes in mental status. Daughter indicates that she had the mother fall in the bathroom. She she looked stiff was said to be foaming in the mouth will follow on the floor. There has been no history of seizure disorder. No fever or chills, no chest pain or shortness of breath. Daughter was by the bedside gave most of the information as patient's appears confused Work-up in the emergency room today, CT of the head shows no acute abnormality. CTA of the head/neck reveals soft plaque with focal calcification resulting in 50% stenosis of the proximal left internal carotid artery. Right carotid b ifurcation is normal. Neurologist on-call was consulted and patient had tPA. Patient to be admitted into the intensive care unit status post tPA. 02/10/2022 Patient able to move all 4 extremities MRI and echocardiogram pending 02/11/2022 Moving all 4 extremities MRI and echo still pending In-house neuro consult tomorrow Objective - Constitutional Vitals: Vital Signs - 12hr 02/11/22 02/11/22 02/11/22 00:01 01:13 02:01 Temperature Pulse Rate 67 74 62 Pulse Rate [ From Monitor] Respiratory 15 21 18 Rate Blood Pressure 118/61 118/61 114/64 O2 Sat by Pulse 100 99 92 Oximetry 02/11/22 02/11/22 02/11/22 03:01 03:03 03:58 Temperature 97.8 F Pulse Rate 70 65 Pulse Rate [ 66 From Monitor] Respiratory 18 16 Rate Blood Pressure 121/52 O2 Sat by Pulse 100 100 Oximetry 02/11/22 02/11/22 02/11/22 04:01 05:01 06:01 Temperature Pulse Rate 70 66 63 Pulse Rate [ From Monitor] Respiratory 12 20 12 Rate Blood Pressure 121/52 132/61 131/62 O2 Sat by Pulse 100 100 100 Oximetry 02/11/22 02/11/22 02/11/22 07:01 07:07 08:00 Temperature 98.9 F Pulse Rate 64 Pulse Rate [ From Monitor] Respiratory 17 Rate Blood Pressure 128/74 O2 Sat by Pulse 100 100 Oximetry 02/11/22 02/11/22 02/11/22 08:01 09:01 10:00 Temperature Pulse Rate 67 90 91 H Pulse Rate [ From Monitor] Respiratory 18 20 21 Rate Blood Pressure 119/74 113/54 113/54 O2 Sat by Pulse 100 96 100 Oximetry - Labs CBC & Chem 7: 02/11/22 05:40 02/11/22 05:40 Labs: Abnormal lab results 02/10/22 02/11/22 02/11/22 Range/Units 11:44 05:40 05:40 WBC 11.4 H (4.5-11.0) K/mm3 RBC 3.43 L (3.65-5.03) M/mm3 Hgb 8.7 L (10.1-14.3) gm/dl Hct 27.1 L (30.3-42.9) % MCH 26 L (28-32) pg RDW 19.3 H (13.2-15.2) % PT (12.2-14.9) Sec. Potassium 3.3 L 3.2 L (3.6-5.0) mmol/L Glucose 107 H (65-100) mg/dL Calcium 7.3 L 6.9 L (8.4-10.2) mg/dL Magnesium 0.30 L* 1.60 L (1.7-2.3) mg/dL 02/11/22 Range/Units 05:40 WBC (4.5-11.0) K/mm3 RBC (3.65-5.03) M/mm3 Hgb (10.1-14.3) gm/dl Hct (30.3-42.9) % MCH (28-32) pg RDW (13.2-15.2) % PT 15.4 H (12.2-14.9) Sec. Potassium (3.6-5.0) mmol/L Glucose (65-100) mg/dL Calcium (8.4-10.2) mg/dL Magnesium (1.7-2.3) mg/dL HEART Score - HEART Score Troponin: Troponin T < 0.010 ng/mL (0.00-0.029) 02/09/22 23:36
[2022-02-11] MEDS ORDERED: MAGNESIUM SULFATE 2 GM/50 ML BAG IV ONE (12:00)
--- NOTE | 2022-02-11 12:50 | Progress Note ---
Subjective Date of service: 02/11/22 Principal diagnosis: Acute CVA, encephalopathy Objective Vital Signs - 12hr 02/11/22 02/11/22 02/11/22 01:13 02:01 03:01 Temperature Pulse Rate 74 62 70 Pulse Rate [ From Monitor] Respiratory 21 18 18 Rate Blood Pressure 118/61 114/64 121/52 O2 Sat by Pulse 99 92 100 Oximetry 02/11/22 02/11/22 02/11/22 03:03 03:58 04:01 Temperature 97.8 F Pulse Rate 65 70 Pulse Rate [ 66 From Monitor] Respiratory 16 12 Rate Blood Pressure 121/52 O2 Sat by Pulse 100 100 Oximetry 02/11/22 02/11/22 02/11/22 05:01 06:01 07:01 Temperature Pulse Rate 66 63 64 Pulse Rate [ From Monitor] Respiratory 20 12 17 Rate Blood Pressure 132/61 131/62 128/74 O2 Sat by Pulse 100 100 100 Oximetry 02/11/22 02/11/22 02/11/22 07:07 08:00 08:01 Temperature 98.9 F Pulse Rate 67 Pulse Rate [ From Monitor] Respiratory 18 Rate Blood Pressure 119/74 O2 Sat by Pulse 100 100 Oximetry 02/11/22 02/11/22 02/11/22 09:01 10:00 12:19 Temperature 98.0 F Pulse Rate 90 91 H Pulse Rate [ From Monitor] Respiratory 20 21 Rate Blood Pressure 113/54 113/54 O2 Sat by Pulse 96 100 Oximetry CBC and BMP: 02/11/22 05:40 02/11/22 05:40 ABG, PT/INR, D-dimer: PT/INR, D-dimer PT 15.4 Sec. (12.2-14.9) H 02/11/22 05:40 INR 1.09 (0.87-1.13) 02/11/22 05:40 Abnormal lab findings: Abnormal Labs 02/09/22 02/09/22 02/09/22 01:40 23:36 23:36 WBC 12.7 H RBC Hgb 9.6 L Hct MCH 25 L RDW 19.1 H Seg Neutrophils % 77.2 H Seg Neuts % (Manual) 86.0 H Seg Neutrophils # 10.2 H Seg Neutrophils # Man 10.9 H PT 15.9 H INR 1.14 H Potassium Glucose Calcium Magnesium Ammonia Total Creatine Kinase Albumin Free T4 Ur Specific Alpha 1.055 H Urine WBC (Auto) 25.0 H U Epithel Cells (Auto) 34.0 H 02/09/22 02/09/22 02/09/22 23:36 23:36 23:36 WBC RBC Hgb Hct MCH RDW Seg Neutrophils % Seg Neuts % (Manual) Seg Neutrophils # Seg Neutrophils # Man PT INR Potassium 3.2 L Glucose 192 H Calcium 7.1 L Magnesium Ammonia 20.0 L Total Creatine Kinase 147 H Albumin 3.5 L Free T4 1.55 H Ur Specific Alpha Urine WBC (Auto) U Epithel Cells (Auto) 02/10/22 02/11/22 02/11/22 11:44 05:40 05:40 WBC 11.4 H RBC 3.43 L Hgb 8.7 L Hct 27.1 L MCH 26 L RDW 19.3 H Seg Neutrophils % Seg Neuts % (Manual) Seg Neutrophils # Seg Neutrophils # Man PT INR Potassium 3.3 L 3.2 L Glucose 107 H Calcium 7.3 L 6.9 L Magnesium 0.30 L* 1.60 L Ammonia Total Creatine Kinase Albumin Free T4 Ur Specific [place] Urine WBC (Auto) U Epithel Cells (Auto) 02/11/22 05:40 WBC RBC Hgb Hct MCH RDW Seg Neutrophils % Seg Neuts % (Manual) Seg Neutrophils # Seg Neutrophils # Man PT 15.4 H INR Potassium Glucose Calcium Magnesium Ammonia Total Creatine Kinase Albumin Free T4 Ur Specific Alpha Urine WBC (Auto) U Epithel Cells (Auto)
[2022-02-11] MEDS: predniSONE 10 MG TAB PO SCH (15:01)
[2022-02-11] MEDS: levETIRAcetam 750 MG in DEXTROSE 5% IN WATER 100 ML IV SCH ×2 (15:01→21:28)
--- NOTE | 2022-02-11 19:38 | Electrocardiograph Report ---
[facility] Test Date: 2022-02-09 Test Time: 23:58:44 Pat Name: CYDNEY CONNER Department: Room: A2 1 Gender: F Milling General Superintendent: WILLIAM : 1945 Requested By: OMER JAUREGUI Order Number: [id number] Reading MD: Rachel Degroot Measurements Intervals [place] Rate: 84 P: 72 [place]: 193 QRS: 21 QRSD: 91 T: 26 QT: 415 QTc: 485 Interpretive Statements Sinus rhythm with possible Wenke Bach AV block Consider left ventricular hypertrophy Compared to ECG 07/17/2021 07:55:10 Wenckebach AV block is now present Electronically Signed On 02-11-2022 19:37:48 EDT by Rachel Degroot
[2022-02-12 04:51] LABS: Basophils % (Auto) 0.1 % (0.0-1.8); Hematocrit 31.3 % (30.3-42.9); Hemoglobin 10.3 gm/dl (10.1-14.3); Lymphocytes # (Auto) 1.2 K/mm3 (1.2-5.4); Lymphocytes % (Auto) 10.6 % (13.4-35.0); Mean Corpuscular HGB Conc 33 % (30-34); Mean Corpuscular Volume 79 fl (79-97); Monocytes # (Auto) 0.5 K/mm3 (0.0-0.8); Monocytes % (Auto) 4.6 % (0.0-7.3); Platelet Count 352 K/mm3 (140-440); Red Blood Count 3.95 M/mm3 (3.65-5.03); Red Cell Distribution Width 19.4 % (13.2-15.2)
[2022-02-12 05:14] LABS: Alanine Aminotransferase 13 units/L (7-56); Albumin 4.1 g/dL (3.9-5); BUN/Creatinine Ratio 9; Blood Urea Nitrogen 8 mg/dL (7-17); Calcium 7.7 mg/dL (8.4-10.2); Hemolysis Index 21
[2022-02-12] MEDS ORDERED: SODIUM PHOSPHATE 30 MMOL in SODIUM CHLORIDE 0.9% 500 ML 500 ML IV ONE (09:00)
[2022-02-12] MEDS: predniSONE 10 MG TAB PO SCH (09:44)
[2022-02-12] MEDS: levETIRAcetam 750 MG in DEXTROSE 5% IN WATER 100 ML IV SCH ×2 (11:45→21:11)
--- NOTE | 2022-02-12 15:15 | Consultation ---
History of Present Illness Consult date: 02/12/22 Reason for Consult: CVA Chief complaint: "I passed out." History of present illness: 76 yo female with afib, htn, arthritis, who presents where on the day of admission, the pt was vomiting all day; not eaten all day; poor appetite for a while since the time she started taking methotrexate; daughter heard things falling in the bathroom; found the patient leaning against the bathroom wall (stuck between the toilet and the shower); appeared stiff; arms flexed; eyes closed, foaming at the mouth; then the patient slumped down, and then started coming around with movement of the head/arms/legs but not opening her eyes or responding verbally; ambulance ride - noted with continued loss of consciousness; similar episode 7-8 months ago in June 2021; daughter notes that the patient is still not back to herself. Daughter notes that "she is always having headaches, "marching sounds in her ears", dizzy, and off balance". Past History Past Medical History: arthritis, GERD, hypertension, other (Irregular heartbeat in the 90s, she is not sure what the diagnosis was. HPLD, ANXIETY, GERD, ARTHRITIS) Past Surgical History: appendectomy, cholecystectomy, Other (Hemorrhoidectomy) Social history: no significant social history Family history: no significant family history Medications and Allergies Allergies Allergy/AdvReac Type Severity Reaction Status Date / Time aspirin Allergy Bleeding Verified 07/18/21 12:48 Home Medications Medication Instructions Recorded Confirmed Last Taken Type Acetaminophen [Tylenol] 650 mg PO Q8H PRN 07/17/21 02/10/22 07/11/21 History Citalopram [celeXA] 20 mg PO QDAY 07/17/21 02/10/22 02/08/22 History predniSONE [Deltasone] 10 mg PO DAILY 07/17/21 02/10/22 02/08/22 History Lisinopril/Hydrochlorothiazide 20 mg PO QDAY 07/18/21 02/10/22 02/08/22 History [Zestoretic 20-12.5 mg] AtorvaSTATin 1 tab PO DAILY 02/10/22 02/10/22 02/08/22 History Inderal Xl 1 tab PO TID 02/10/22 02/10/22 Unknown History Megestrol 5 ml PO DAILY 02/10/22 02/10/22 02/08/22 History Memantine 1 tab PO DAILY 02/10/22 02/10/22 02/08/22 History Omeprazole 20 mg PO DAILY 02/10/22 02/10/22 02/08/22 History carvediloL [Coreg] 12.5 mg PO BID 02/10/22 02/10/22 02/08/22 History traMADoL [Ultram 50 MG tab] 1 tab PO BID PRN 02/10/22 02/10/22 Unknown History Active Meds: Active Medications Acetaminophen (Acetaminophen 325 Mg Tab) 650 mg PO Q6H PRN PRN Reason: Pain MILD(1-3)/Fever >100.5/RUELAS Last Admin: 02/11/22 09:50 Dose: 650 mg Atorvastatin Calcium (Atorvastatin 40 Mg Tab) 40 mg PO QHS [facility] Last Admin: 02/11/22 21:28 Dose: 40 mg Bisacodyl (Bisacodyl 10 Mg Rect Supp) 10 mg NC QDAY PRN PRN Reason: Constipation Levetiracetam 750 mg/ Dextrose 107.5 mls @ 400 mls/hr IV Q12HR [facility] Stop: 02/12/22 23:59 Last Admin: 02/11/22 21:28 Dose: 400 mls/hr Levetiracetam (Levetiracetam 500 Mg Tab) 750 mg PO BID [facility] Magnesium Hydroxide (Magnesium Hydroxide (Mom) Oral Liqd Udc) 30 ml PO Q4H PRN PRN Reason: Constipation Metoclopramide HCl (Metoclopramide 10 Mg Tab) 10 mg PO Q6H PRN PRN Reason: Nausea And Vomiting Morphine Sulfate (Morphine 4 Mg/1 Ml Inj) 4 mg IV Q4H PRN PRN Reason: Pain , Severe (7-10) Morphine Sulfate (Morphine 2 Mg/1 Ml Inj) 2 mg IV Q4H PRN PRN Reason: Pain, Moderate (4-6) Last Admin: 02/11/22 16:08 Dose: 2 mg Ondansetron HCl (Ondansetron 4 Mg/2 Ml Inj) 4 mg IV Q8H PRN PRN Reason: Nausea And Vomiting Last Admin: 02/10/22 01:50 Dose: 4 mg Prednisone (Prednisone 10 Mg Tab) 10 mg PO QDAY [facility] Last Admin: 02/12/22 09:44 Dose: 10 mg Promethazine HCl (Promethazine 25 Mg Rect Supp) 25 mg NC Q6H PRN PRN Reason: Nausea And Vomiting Sodium Chloride (Sodium Chloride 0.9% 10 Ml Flush Syringe) 10 ml IV BID MIHAELA Last Admin: 02/12/22 09:46 Dose: 10 ml Sodium Chloride (Sodium Chloride 0.9% 10 Ml Flush Syringe) 10 ml IV PRN PRN PRN Reason: LINE FLUSH Review of Systems All systems: negative (as per hpi;) Physical Examination - Vital Signs Vital Signs: Vital Signs Pulse Resp 91 H 19 02/09/22 23:38 02/09/22 23:38 - Physical Exam Narrative exam: Gen: nad, well-nourished; Head: normocephalic; Eyes: no gaze deviation; no ptosis; ENT: normal vocalization; CVS: warm and well-perfused; Pulm: no respiratory distress; GI: appears non-distended; Ext: no cyanosis appreciated at distal extremities; Skin: no acute rash at distal extremities; Heme: no pathologic ecchymosis appreciated at distal extremities; Neuro: alert, oriented to name, age, month, year, surroundings, no dysarthria, no aphasia, CN 2 - PERRL, visual bates grossly intact, CN 3, 4, 6 - EOMI, CN 5 - facial sensation symmetric to light touch, CN 7 - facial movement symmetric, CN 8 - hearing grossly intact, CN 9, 10 - uvula midline, CN 11 symmetric shoulder movement, CN 12 - tongue midline; Motor - at least 4/5 at all exts; Sensory - light touch symmetric, Cerebellar - fnf /hts intact, Gait - deferred secondary to fall risk; NIHSS (1a.) Level of Consciousness:0 (1b.) LOC Questions:0 (1c.) LOC Commands:0 (2.) Best Gaze:0 (3.) Visual:0 (4.) Facial Palsy:0 (5a.) Motor Arm, Left:0 (5b.) Motor Arm, Right:0 (6a.) Motor Leg, Left:0 (6b.) Motor Leg, Right:0 (7.) Limb Ataxia:0 (8.) Sensory:0 (9.) Best Language:0 (10.) Dysarthria: 0 (11.) Extinction and Inattention:0 NIHSS Total Score: Results - Laboratory Findings CBC and BMP: 02/12/22 03:10 02/12/22 03:10 Abnormal Lab Findings: Abnormal Labs 02/09/22 02/09/22 02/09/22 01:40 23:36 23:36 WBC 12.7 H RBC Hgb 9.6 L Hct MCH 25 L RDW 19.1 H Lymph % (Auto) Seg Neutrophils % 77.2 H Seg Neuts % (Manual) 86.0 H Seg Neutrophils # 10.2 H Seg Neutrophils # Man 10.9 H PT 15.9 H INR 1.14 H Potassium Glucose Calcium Phosphorus Magnesium Ammonia Total Creatine Kinase Albumin Free T4 Ur Specific [place] 1.055 H Urine WBC (Auto) 25.0 H U Epithel Cells (Auto) 34.0 H 02/09/22 02/09/22 02/09/22 23:36 23:36 23:36 WBC RBC Hgb Hct MCH RDW Lymph % (Auto) Seg Neutrophils % Seg Neuts % (Manual) Seg Neutrophils # Seg Neutrophils # Man PT INR Potassium 3.2 L Glucose 192 H Calcium 7.1 L Phosphorus Magnesium Ammonia 20.0 L Total Creatine Kinase 147 H Albumin 3.5 L Free T4 1.55 H Ur Specific [place] Urine WBC (Auto) U Epithel Cells (Auto) 02/10/22 02/11/22 02/11/22 11:44 05:40 05:40 WBC 11.4 H RBC 3.43 L Hgb 8.7 L Hct 27.1 L MCH 26 L RDW 19.3 H Lymph % (Auto) Seg Neutrophils % Seg Neuts % (Manual) Seg Neutrophils # Seg Neutrophils # Man PT INR Potassium 3.3 L 3.2 L Glucose 107 H Calcium 7.3 L 6.9 L Phosphorus Magnesium 0.30 L* 1.60 L Ammonia Total Creatine Kinase Albumin Free T4 Ur Specific [place] Urine WBC (Auto) U Epithel Cells (Auto) 02/11/22 02/12/22 02/12/22 05:40 03:10 03:10 WBC RBC Hgb Hct MCH 26 L RDW 19.4 H Lymph % (Auto) 10.6 L Seg Neutrophils % 84.7 H Seg Neuts % (Manual) Seg Neutrophils # 9.3 H Seg Neutrophils # Man PT 15.4 H INR Potassium Glucose 139 H Calcium 7.7 L Phosphorus 1.80 L Magnesium Ammonia Total Creatine Kinase Albumin Free T4 Ur Specific [place] Urine WBC (Auto) U Epithel Cells (Auto) Assessment and Plan 76 yo female with afib, htn, arthritis, who presents where on the day of admission patient was witnessed with a possible seizure event. 1. Seizure - concern is raised based on clinical history; likely triggered in the setting of hypomagnesemia; need to r/o structural lesion of the brain especially with a hx of unexplained (unless mtx-induced) weight loss. 2. TIA/Stroke / Cerebral Metastasis - awaiting mri brain prior to further workup; antiplatelet / statin therapy for now; pt has a hx of afib in the setting of electrolyte abnormalities(?) per daughter; recommend prophylactic anticoagulation for secondary stroke prophylaxis. 3. Nausea/Emesis - idiopathic; likely led to hypomagnesemia; workup per primary team. 4. Weight Loss (idiopathic) - onset may have been related to methotrexate; however continued weight loss / nausea/emesis; workup per primary team. 5. Hypertension - permissive hypertension until MRI Brain results are avaialbe. 6. Memory Loss - noted by daughter (at beside); serologies ordered. Werner Doe MD Neurology [id number]
--- NOTE | 2022-02-12 15:19 | Progress Note ---
Assessment and Plan Assessment and plan: #CVA (cerebral vascular accident) -s/p post tPA, transferred from ICU to telemetry -TTE shows LVEF of 60-65% and no PFO -EEG and MRI brain pending -continue statin -Inpatient Neurology evaluation pending -PT evaluation: recommending HH with PT #Hypertension -HTN medications held at admission -will resume pending Neurology recommendations #Hyperlipidemia -continue statin #Hypocalcemia #Hypokalemia #Hypomagnesemia -will replete and monitor -likely secondary from thiazide diuretic use for HTN #Advanced care planning -Disease education conducted, care plan discussed, diagnoses discussed, prog nosis discussed, and patient acknowledges understanding with care plan -Time: +30 min History Interval history: Patient seen in room. She has no complaints. Discussed current care plan. Awaiting MRI. Hospitalist Physical - Physical exam Narrative exam: GENERAL: Well-developed well-nourished. In no acute distress. HEENT: Normocephalic. Atraumatic. NECK: Supple. CHEST/LUNGS: CTAB on room air HEART/CARDIOVASCULAR: RRR. No murmur, rubs or gallops appreciated. ABDOMEN: +BS. NT/ND. SKIN: No rashes noted. NEURO: No focal motor deficit. Follows all commands. MUSCULOSKELETAL: No joint effusion EXTREMITIES: No cyanosis, clubbing or edema. PSYCH: Cooperative. - Constitutional Vitals: Temp Pulse Resp BP Pulse Ox 98.2 F 64 17 166/70 97 02/12/22 05:13 02/12/22 05:13 02/12/22 05:13 02/12/22 05:13 02/12/22 05:13 General appearance: Present: no acute distress, well-nourished HEART Score - HEART Score Troponin: Troponin T < 0.010 ng/mL (0.00-0.029) 02/09/22 23:36 Results - Labs CBC & Chem 7: 02/12/22 03:10 02/12/22 03:10 Labs: Laboratory Last Values WBC 10.9 K/mm3 (4.5-11.0) 02/12/22 03:10 RBC 3.95 M/mm3 (3.65-5.03) 02/12/22 03:10 Hgb 10.3 gm/dl (10.1-14.3) 02/12/22 03:10 Hct 31.3 % (30.3-42.9) 02/12/22 03:10 MCV 79 fl (79-97) 02/12/22 03:10 MCH 26 pg (28-32) L 02/12/22 03:10 MCHC 33 % (30-34) 02/12/22 03:10 RDW 19.4 % (13.2-15.2) H 02/12/22 03:10 Plt Count 352 K/mm3 (140-440) 02/12/22 03:10 Lymph % (Auto) 10.6 % (13.4-35.0) L 02/12/22 03:10 [place] % (Auto) 4.6 % (0.0-7.3) 02/12/22 03:10 Eos % (Auto) 0.0 % (0.0-4.3) 02/12/22 03:10 Baso % (Auto) 0.1 % (0.0-1.8) 02/12/22 03:10 Lymph # (Auto) 1.2 K/mm3 (1.2-5.4) 02/12/22 03:10 [place] # (Auto) 0.5 K/mm3 (0.0-0.8) 02/12/22 03:10 Eos # (Auto) 0.0 K/mm3 (0.0-0.4) 02/12/22 03:10 Baso # (Auto) 0.0 K/mm3 (0.0-0.1) 02/12/22 03:10 Add Manual Diff Complete 02/09/22 23:36 Total Counted 100 02/09/22 23:36 Seg Neutrophils % 84.7 % (40.0-70.0) H 02/12/22 03:10 Seg Neuts % (Manual) 86.0 % (40.0-70.0) H 02/09/22 23:36 Band Neutrophils % 0 % 02/09/22 23:36 Lymphocytes % (Manual) 14.0 % (13.4-35.0) 02/09/22 23:36 Reactive Lymphs % (Man) 0 % 02/09/22 23:36 Monocytes % (Manual) 0 % (0.0-7.3) 02/09/22 23:36 Eosinophils % (Manual) 0 % (0.0-4.3) 02/09/22 23:36 Basophils % (Manual) 0 % (0.0-1.8) 02/09/22 23:36 Metamyelocytes % 0 % 02/09/22 23:36 Myelocytes % 0 % 02/09/22 23:36 Promyelocytes % 0 % 02/09/22 23:36 Blast Cells % 0 % 02/09/22 23:36 Nucleated RBC % Not Reportable 02/09/22 23:36 Seg Neutrophils # 9.3 K/mm3 (1.8-7.7) H 02/12/22 03:10 Seg Neutrophils # Man 10.9 K/mm3 (1.8-7.7) H 02/09/22 23:36 Band Neutrophils # 0.0 K/mm3 02/09/22 23:36 Lymphocytes # (Manual) 1.8 K/mm3 (1.2-5.4) 02/09/22 23:36 Abs React Lymphs (Man) 0.0 K/mm3 02/09/22 23:36 Monocytes # (Manual) 0.0 K/mm3 (0.0-0.8) 02/09/22 23:36 Eosinophils # (Manual) 0.0 K/mm3 (0.0-0.4) 02/09/22 23:36 Basophils # (Manual) 0.0 K/mm3 (0.0-0.1) 02/09/22 23:36 Metamyelocytes # 0.0 K/mm3 02/09/22 23:36 Myelocytes # 0.0 K/mm3 02/09/22 23:36 Promyelocytes # 0.0 K/mm3 02/09/22 23:36 Blast Cells # 0.0 K/mm3 02/09/22 23:36 WBC Morphology Not Reportable 02/09/22 23:36 Hypersegmented Neuts Not Reportable 02/09/22 23:36 Hyposegmented Neuts Not Reportable 02/09/22 23:36 Hypogranular Neuts Not Reportable 02/09/22 23:36 Smudge Cells Not Reportable 02/09/22 23:36 Toxic Granulation Not Reportable 02/09/22 23:36 Toxic Vacuolation Not Reportable 02/09/22 23:36 Dohle Bodies Not Reportable 02/09/22 23:36 Pelger-Huet Anomaly Not Reportable 02/09/22 23:36 Mario Alberto Rods Not Reportable 02/09/22 23:36 Platelet Estimate Consistent w auto 02/09/22 23:36 Clumped Platelets Not Reportable 02/09/22 23:36 Plt Clumps, EDTA Not Reportable 02/09/22 23:36 Large Platelets Not Reportable 02/09/22 23:36 Giant Platelets Not Reportable 02/09/22 23:36 Platelet Satelliting Not Reportable 02/09/22 23:36 Plt Morphology Comment Not Reportable 02/09/22 23:36 RBC Morphology Not Reportable 02/09/22 23:36 Dimorphic RBCs Not Reportable 02/09/22 23:36 Polychromasia Few 02/09/22 23:36 Hypochromasia Not Reportable 02/09/22 23:36 Poikilocytosis 1+ 02/09/22 23:36 Anisocytosis 1+ 02/09/22 23:36 Microcytosis Not Reportable 02/09/22 23:36 Macrocytosis Not Reportable 02/09/22 23:36 Spherocytes 1+ 02/09/22 23:36 Pappenheimer Bodies Not Reportable 02/09/22 23:36 Sickle Cells Not Reportable 02/09/22 23:36 Target Cells Not Reportable 02/09/22 23:36 Tear Drop Cells Not Reportable 02/09/22 23:36 Ovalocytes Not Reportable 02/09/22 23:36 Helmet Cells Not Reportable 02/09/22 23:36 Ortiz-Haven Bodies Not Reportable 02/09/22 23:36 [place] Rings Not Reportable 02/09/22 23:36 Robe Cells Not Reportable 02/09/22 23:36 Bite Cells Not Reportable 02/09/22 23:36 Crenated Cell Not Reportable 02/09/22 23:36 Elliptocytes Not Reportable 02/09/22 23:36 Acanthocytes (Spur) Not Reportable 02/09/22 23:36 Rouleaux Not Reportable 02/09/22 23:36 Hemoglobin C Crystals Not Reportable 02/09/22 23:36 Schistocytes Not Reportable 02/09/22 23:36 Malaria parasites Not Reportable 02/09/22 23:36 Bladimir Bodies Not Reportable 02/09/22 23:36 Hem Pathologist Commnt No 02/09/22 23:36 PT 15.4 Sec. (12.2-14.9) H 02/11/22 05:40 INR 1.09 (0.87-1.13) 02/11/22 05:40 APTT 27.7 Sec. (24.2-36.6) 02/09/22 23:36 Sodium 138 mmol/L (137-145) 02/12/22 03:10 Potassium 4.0 mmol/L (3.6-5.0) D 02/12/22 03:10 Chloride 100.3 mmol/L (98-107) 02/12/22 03:10 Carbon Dioxide 22 mmol/L (22-30) 02/12/22 03:10 Anion Gap 20 mmol/L 02/12/22 03:10 BUN 8 mg/dL (7-17) 02/12/22 03:10 Creatinine 0.9 mg/dL (0.6-1.2) 02/12/22 03:10 Estimated GFR > 60 ml/min 02/12/22 03:10 BUN/Creatinine Ratio 9 % 02/12/22 03:10 Glucose 139 mg/dL (65-100) H 02/12/22 03:10 Hemoglobin A1c 5.7 % (4-6) 02/11/22 05:40 Calcium 7.7 mg/dL (8.4-10.2) L 02/12/22 03:10 Phosphorus 1.80 mg/dL (2.5-4.5) L 02/12/22 03:10 Magnesium 2.20 mg/dL (1.7-2.3) 02/12/22 03:10 Total Bilirubin 0.80 mg/dL (0.1-1.2) 02/12/22 03:10 AST 20 units/L (5-40) 02/12/22 03:10 ALT 13 units/L (7-56) 02/12/22 03:10 Alkaline Phosphatase 67 units/L (35-129) 02/12/22 03:10 Ammonia 20.0 umol/L (25-60) L 02/09/22 23:36 Total Creatine Kinase 147 units/L (30-135) H 02/09/22 23:36 CK-MB (CK-2) 1.6 ng/mL (0.0-4.0) 02/09/22 23:36 CK-MB (CK-2) Rel Index 1.0 (0-4) 02/09/22 23:36 Troponin T < 0.010 ng/mL (0.00-0.029) 02/09/22 23:36 Total Protein 7.3 g/dL (6.3-8.2) 02/12/22 03:10 Albumin 4.1 g/dL (3.9-5) 02/12/22 03:10 Albumin/Globulin Ratio 1.3 % 02/12/22 03:10 Triglycerides 97 mg/dL (2-149) 02/10/22 11:44 Cholesterol 168 mg/dL (50-199) 02/10/22 11:44 LDL Cholesterol Direct 102 mg/dL (50-130) 02/10/22 11:44 HDL Cholesterol 50 mg/dL (40-59) 02/10/22 11:44 Cholesterol/HDL Ratio 3.36 % 02/10/22 11:44 TSH 4.180 mlU/mL (0.270-4.200) 02/09/22 23:36 Free T4 1.55 ng/dL (0.76-1.46) H 02/09/22 23:36 Urine Color Marjorie (Yellow) 02/09/22 01:40 Urine Turbidity Slightly-cloudy (Clear) 02/09/22 01:40 Urine pH 7.0 (5.0-7.0) 02/09/22 01:40 Ur Specific [place] 1.055 (1.003-1.030) H 02/09/22 01:40 Urine Protein 100 mg/dl mg/dL (Negative) 02/09/22 01:40 Urine Glucose (UA) Neg mg/dL (Negative) 02/09/22 01:40 Urine Ketones 20 mg/dL (Negative) 02/09/22 01:40 Urine Blood Mod (Negative) 02/09/22 01:40 Urine Nitrite Neg (Negative) 02/09/22 01:40 Ur Reducing Substances Not Reportable 02/09/22 01:40 Urine Bilirubin Neg (Negative) 02/09/22 01:40 Urine Ictotest Not Reportable 02/09/22 01:40 Urine Urobilinogen 2.0 mg/dL (<2.0) 02/09/22 01:40 Ur Leukocyte Esterase Mod (Negative) 02/09/22 01:40 Urine WBC (Auto) 25.0 /HPF (0.0-6.0) H 02/09/22 01:40 Urine RBC (Auto) 126.0 /HPF (0.0-6.0) 02/09/22 01:40 U Epithel Cells (Auto) 34.0 /HPF (0-13.0) H 02/09/22 01:40 Urine Bacteria (Auto) 4+ /HPF (Negative) 02/09/22 01:40 Urine Mucus 1+ /HPF 02/09/22 01:40 Plasma/Serum Alcohol < 0.01 % (0-0.07) 02/09/22 23:36 Huerta/IV: Voiding Method External Female Catheter Active Medications - Current Medications Current Medications: Generic Name Dose Route Start Last Admin Trade Name Freq PRN Reason Stop Dose Admin Acetaminophen 650 mg 02/10/22 01:00 02/11/22 09:50 Acetaminophen 325 Mg Tab PO 650 mg Q6H PRN Administration Pain MILD(1-3)/Fever >100.5/RUELAS Atorvastatin Calcium 40 mg 02/10/22 22:00 02/11/22 21:28 Atorvastatin 40 Mg Tab PO 40 mg QHS MIHAELA Administration Bisacodyl 10 mg 02/10/22 01:00 Bisacodyl 10 Mg Rect Supp NH QDAY PRN Constipation Levetiracetam 750 mg/ Dextrose 107.5 mls @ 400 mls/hr 02/11/22 12:00 02/11/22 21:28 IV 02/12/22 23:59 400 mls/hr Q12HR MIHAELA Administration Levetiracetam 750 mg 02/13/22 10:00 Levetiracetam 500 Mg Tab PO BID MIHAELA Magnesium Hydroxide 30 ml 02/10/22 01:00 Magnesium Hydroxide (Mom) Oral Liqd Udc PO Q4H PRN Constipation Metoclopramide HCl 10 mg 02/10/22 01:00 Metoclopramide 10 Mg Tab PO Q6H PRN Nausea And Vomiting Morphine Sulfate 4 mg 02/10/22 01:00 Morphine 4 Mg/1 Ml Inj IV Q4H PRN Pain , Severe (7-10) Morphine Sulfate 2 mg 02/10/22 01:00 02/11/22 16:08 Morphine 2 Mg/1 Ml Inj IV 2 mg Q4H PRN Administration Pain, Moderate (4-6) Ondansetron HCl 4 mg 02/10/22 01:00 02/10/22 01:50 Ondansetron 4 Mg/2 Ml Inj IV 4 mg Q8H PRN Administration Nausea And Vomiting Prednisone 10 mg 02/11/22 15:00 02/12/22 09:44 Prednisone 10 Mg Tab PO 10 mg QDAY MIHAELA Administration Promethazine HCl 25 mg 02/10/22 01:00 Promethazine 25 Mg Rect Supp [place] Q6H PRN Nausea And Vomiting Sodium Chloride 10 ml 02/10/22 10:00 02/12/22 09:46 Sodium Chloride 0.9% 10 Ml Flush Syringe IV 10 ml BID MIHAELA Administration Sodium Chloride 10 ml 02/10/22 01:00 Sodium Chloride 0.9% 10 Ml Flush Syringe IV PRN PRN LINE FLUSH Nutrition/Malnutrition Assess - Dietary Evaluation Nutrition/Malnutrition Findings: Nutrition Notes Start: 02/10/22 09:27 Freq: Status: Active Protocol: Document 02/10/22 09:27 [facility] (Rec: 02/10/22 09:35 [facility] [id number]) Nutrition Notes Need for Assessment generated from: MD Order,Education Initial or Follow up Assessment Current Diagnosis Hypertension,Stroke Other Pertinent Diagnosis AMS, Dementia, afib Current Diet Cardiac Labs/Tests Reviewed Pertinent Medications Reviewed Height 5 ft 8 in Weight 53.8 kg [place] Body Weight (kg) 63.63 BMI 18.0 Weight Status Underweight Subjective/Other Information RD consulted for diet education. Pt not appropriate for diet education at this time. RELAY TELEGRAPHER consulted for swallow evaluation. Burn Absent Trauma Absent Minimum of two criteria No #1 Nutrition Diagnosis Predicted suboptimal energy intake Etiology advanced age, AMS As Evidenced by Signs and Symptoms pt had recent CVA Is patient on ventilator? No Is Patient Ambulatory and/or Out of Bed No REE-([place]-confined to bed) 1310.256 Kcal/Kg value to use for calculation 34 Approximate Energy Requirements Using 1829 kcal/Kg Calculation Used for Recommendations Kcal/kg Additional Notes Pro needs 1.2-2g/k-108g/ day Fluid needs 1ml/kcal Nutrition Intervention Change Diet Order: Continue current diet order; modify as needed Goal #1 PO intake to meet 100% energy and pro needs Goal #2 Wt maintenance and/or gain Anticipated Discharge Needs: Unable to identify at this time Follow-Up By: 02/12/22 Additional Comments F/U: RELAY TELEGRAPHER evaluation, intakes, need for ONS, malnutrition screen
--- NOTE | 2022-02-12 20:28 | Progress Note ---
Assessment and Plan 76-year-old female with known history of dementia, dementia, atrial fibrillation,, HTN, GERD, arthritis presenting the emergency room today via EMS with changes in mental status. Daughter indicates that she had the mother fell in the bathroom. She looked stiff was said to be foaming in the mouth will follow on the floor. There has been no history of seizure disorder. No fever or chills, no chest pain or shortness of breath. Patient confused. Most of the history obtained through her daughter. Patients past surgical history Append ectomy, Cholecystectomy and Hemmoroidectomy. Patient has history of smoking 1 pack x 15 years. Counseled to stop smoking. Denies alcohol or drug abuse. 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 Work-up in the emergency room , CT of the head shows no acute abnormality. CTA of the head/neck reveals soft plaque with focal calcification resulting in 50% stenosis of the proximal left internal carotid artery. Right carotid bifurcation is normal. Neurologist on-call was consulted and patient had tPA. Patient to be admitted into the intensive care unit status post tPA. Patient awake. Resting on room air. O2 saturation 98%. No acute respiratory distress. Patient afebrile. No leukocytosis. Blood pressure 173/84 , Pulse 73 , respirations 18 Patient is on PO Prednisone. - Patient Problems (1) Aortic stenosis Current Visit: No Status: Acute Plan to address problem: Recommend Echocardiogram. Consult Cardiology. (2) Atrial fibrillation with RVR Current Visit: No Status: Acute Plan to address problem: Management as per cardiology. (3) Chest pain Current Visit: No Status: Acute Plan to address problem: Management as per cardiology. (4) Diabetes mellitus, new onset Current Visit: No Status: Acute Plan to address problem: Management as per primary care. (5) Asthma Onset Date: 09/23/13 Current Visit: No Status: Chronic Plan to address problem: Patient is on prednisone. Recommend albuterol inhalor 2 puffs po qid. (6) Hypertension Onset Date: 09/23/13 Current Visit: No Status: Chronic Plan to address problem: Management as per primary care. Subjective Date of service: 02/12/22 Principal diagnosis: Acute CVA, encephalopathy Interval history: 76-year-old female with known history of dementia, dementia, atrial fibrillation,, HTN, GERD, Asthma,arthritis presenting the emergency room today via EMS with changes in mental status. Daughter indicates that she had the mother fell in the bathroom. She looked stiff was said to be foaming in the mouth will follow on the floor. There has been no history of seizure disorder. No fever or chills, no chest pain or shortness of breath. Patient confused. Most of the history obtained through her daughter. Patients past surgical history Appendectomy, Cholecystectomy and Hemmoroidectomy. Patient has history of smoking 1 pack x 15 years. Counseled to stop smoking. Denies alcohol or drug abuse. 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 Work-up in the emergency room , CT of the head shows no acute abnormality. CTA of the head/neck reveals soft plaque with focal calcification resulting in 50% stenosis of the proximal left internal carotid artery. Right carotid bifurcation is normal. Neurologist on-call was consulted and patient had tPA. Patient to be admitted into the intensive care unit status post tPA. Patient awake. Resting on room air. O2 saturation 98%. No acute respiratory distress. Patient afebrile. No leukocytosis. Blood pressure 173/84 , Pulse 73 , respirations 18 Patient is on PO Prednisone. Objective Vital Signs - 12hr 02/12/22 02/12/22 02/12/22 10:00 12:00 16:00 Pulse Rate 64 62 O2 Sat by Pulse 99 Oximetry Constitutional: no acute distress, alert Eyes: non-icteric Neck: supple, no lymphadenopathy Effort: normal Ascultation: Bilateral: clear Cardiovascular: regular rate and rhythm Gastrointestinal: normoactive bowel sounds, soft, non-tender Integumentary: normal Extremities: no cyanosis, no edema Neurologic: normal mental status, non-focal exam, pupils equal and round Psychiatric: mood appropriate CBC and BMP: 02/12/22 03:10 02/12/22 03:10 ABG, PT/INR, D-dimer: PT/INR, D-dimer PT 15.4 Sec. (12.2-14.9) H 02/11/22 05:40 INR 1.09 (0.87-1.13) 02/11/22 05:40 Abnormal lab findings: Abnormal Labs 02/09/22 02/09/22 02/09/22 01:40 23:36 23:36 WBC 12.7 H RBC Hgb 9.6 L Hct MCH 25 L RDW 19.1 H Lymph % (Auto) Seg Neutrophils % 77.2 H Seg Neuts % (Manual) 86.0 H Seg Neutrophils # 10.2 H Seg Neutrophils # Man 10.9 H PT 15.9 H INR 1.14 H Potassium Glucose Calcium Phosphorus Magnesium Ammonia Total Creatine Kinase Albumin Free T4 Ur Specific [place] 1.055 H Urine WBC (Auto) 25.0 H U Epithel Cells (Auto) 34.0 H 02/09/22 02/09/22 02/09/22 23:36 23:36 23:36 WBC RBC Hgb Hct MCH RDW Lymph % (Auto) Seg Neutrophils % Seg Neuts % (Manual) Seg Neutrophils # Seg Neutrophils # Man PT INR Potassium 3.2 L Glucose 192 H Calcium 7.1 L Phosphorus Magnesium Ammonia 20.0 L Total Creatine Kinase 147 H Albumin 3.5 L Free T4 1.55 H Ur Specific [place] Urine WBC (Auto) U Epithel Cells (Auto) 02/10/22 02/11/22 02/11/22 11:44 05:40 05:40 WBC 11.4 H RBC 3.43 L Hgb 8.7 L Hct 27.1 L MCH 26 L RDW 19.3 H Lymph % (Auto) Seg Neutrophils % Seg Neuts % (Manual) Seg Neutrophils # Seg Neutrophils # Man PT INR Potassium 3.3 L 3.2 L Glucose 107 H Calcium 7.3 L 6.9 L Phosphorus Magnesium 0.30 L* 1.60 L Ammonia Total Creatine Kinase Albumin Free T4 Ur Specific [place] Urine WBC (Auto) U Epithel Cells (Auto) 02/11/22 02/12/22 02/12/22 05:40 03:10 03:10 WBC RBC Hgb Hct MCH 26 L RDW 19.4 H Lymph % (Auto) 10.6 L Seg Neutrophils % 84.7 H Seg Neuts % (Manual) Seg Neutrophils # 9.3 H Seg Neutrophils # Man PT 15.4 H INR Potassium Glucose 139 H Calcium 7.7 L Phosphorus 1.80 L Magnesium Ammonia Total Creatine Kinase Albumin Free T4 Ur Specific [place] Urine WBC (Auto) U Epithel Cells (Auto) Additional Studies: CTA NECK WITH CONTRAST 02/09/22 HISTORY: Altered mental status COMPARISON: None. TECHNIQUE: Routine CTA of the neck was performed. 3-D/MIP reformats were postprocessed. Percentage stenosis is determined by direct quantitative measurements of diseased internal carotid artery diameter compared with normal distal internal carotid artery reference segments or by criteria similar to NASCET where applicable.All CT scans at this location are performed using CT dose reduction for ALARA by means of automated exposure control CONTRAST: 100 ml of Omnipaque 350 FINDINGS: Aortic arch: No significant abnormality. Cervical vertebral arteries: Right vertebral artery: Normal from origin to basilar formation Left vertebral artery: 50% stenoses at the origin of left vertebral artery; multiple focal areas of minimal narrowing in the left vertebral artery up to basilar formation Common carotid arteries: No significant abnormality. Carotid bifurcations: Right carotid bifurcation: Normal Left carotid bifurcation: Atherosclerotic plaque with approximately 50% stenoses at the origin; soft plaque with focal calcification Cervical internal carotid arteries: No significant abnormality. Additional findings: None. IMPRESSION: Left carotid bifurcation: Soft plaque with focal calcification resulting in 50% stenoses of the proximal left internal carotid artery Right carotid bifurcation: Normal
[2022-02-13] MEDS: levETIRAcetam 500 MG TAB PO SCH ×2 (12:21→22:38)
[2022-02-13] MEDS: predniSONE 10 MG TAB PO SCH (12:21)
--- NOTE | 2022-02-13 14:36 | Magnetic Resonance Report ---
NONENHANCED AND CONTRAST-ENHANCED MR SCAN OF THE BRAIN: INDICATION / CLINICAL INFORMATION: metastasis or stroke, RT SIDED WEAKNESS. TECHNIQUE: Multiplanar, multisequence MR images of the brain obtained. 16 mL of Clariscan COMPARISON: CT scan of the head from 02/11/2022 FINDINGS: BRAIN / INTRACRANIAL CONTENTS: No acute ischemia, acute hemorrhage, mass effect, midline shift, or hy drocephalus. Chronic lacune in the right globus pallidus extending towards the right caudate with co mpensatory enlargement of right frontal horn; few scattered white matter lesions ([place]az[place] 1) probably due to chronic small vessel disease; chronic changes in the alaina due to chronic small vessel disease ; in the contrast enhanced series, no enhancing parenchymal or meningeal lesions in the brain. CRANIOCERVICAL JUNCTION: No significant abnormality. VASCULAR FLOW-VOIDS: No significant abnormality. ORBITS: No significant abnormality of visualized orbits. SINUSES / MASTOIDS: No significant abnormality of visualized sinuses and mastoid air cells. ADDITIONAL FINDINGS: None. IMPRESSION: 1. No acute focal parenchymal lesion in the brain; chronic lacune in the right basal ganglia; no spac e taking lesion; no enhancing parenchymal lesion Signer Name: Aric Ramirez MD Signed: 02/13/2022 2:32 PM Workstation Name: [id number]
--- NOTE | 2022-02-13 16:35 | Progress Note ---
Assessment and Plan Assessment and plan: #CVA (cerebral vascular accident) -s/p post tPA, transferred from ICU to telemetry -TTE shows LVEF of 60-65% and no PFO -EEG and MRI brain pending -continue statin -Inpatient Neurology evaluation pending -PT evaluation: recommending HH with PT #Hypertension -HTN medications held at admission -will resume pending Neurology recommendations #Hyperlipidemia -continue statin #Hypocalcemia #Hypokalemia #Hypomagnesemia -will replete and monitor -likely secondary from thiazide diuretic use for HTN #Advanced care planning -Disease education conducted, care plan discussed, diagnoses discussed, pro gnosis discussed, and patient acknowledges understanding with care plan -Time: +30 min Disposition Plan: Discharging home tomorrow Total Time Spent with Patient (Minutes): 45 minutes History Interval history: No acute events over night. The patient denies fevers, chills, nausea, vomiting, abdominal pain, chest pain/pressure, shortness of breath, urinary symptoms, weakness, or confusion. Hospitalist Physical - Constitutional Vitals: Temp Pulse Resp BP Pulse Ox 97.7 F 60 18 169/65 97 02/13/22 07:47 02/13/22 07:47 02/13/22 07:47 02/13/22 07:47 02/13/22 07:47 General appearance: Present: no acute distress, well-nourished - EENT Eyes: Present: PERRL, EOM intact ENT: hearing intact, clear oral mucosa, dentition normal - Neck Neck: Present: supple, normal ROM - Respiratory Respiratory effort: normal Respiratory: bilateral: CTA - Cardiovascular Rhythm: regular Heart Sounds: Present: S1 & S2 - Extremities Extremities: no ischemia, pulses intact, pulses symmetrical, No edema, normal temperature, normal color Peripheral Pulses: within normal limits - Abdominal General gastrointestinal: soft, non-tender, non-distended, normal bowel sounds - Integumentary Integumentary: Present: clear, warm, dry - Psychiatric Psychiatric: appropriate mood/affect, intact judgment & insight, cooperative - Neurologic Neurologic: CNII-XII intact, moves all extremities - Allied Health Allied health notes reviewed: nursing HEART Score - HEART Score Troponin: Troponin T < 0.010 ng/mL (0.00-0.029) 02/09/22 23:36 Results - Labs CBC & Chem 7: 02/12/22 03:10 02/12/22 03:10 Labs: Laboratory Last Values WBC 10.9 K/mm3 (4.5-11.0) 02/12/22 03:10 RBC 3.95 M/mm3 (3.65-5.03) 02/12/22 03:10 Hgb 10.3 gm/dl (10.1-14.3) 02/12/22 03:10 Hct 31.3 % (30.3-42.9) 02/12/22 03:10 MCV 79 fl (79-97) 02/12/22 03:10 MCH 26 pg (28-32) L 02/12/22 03:10 MCHC 33 % (30-34) 02/12/22 03:10 RDW 19.4 % (13.2-15.2) H 02/12/22 03:10 Plt Count 352 K/mm3 (140-440) 02/12/22 03:10 Lymph % (Auto) 10.6 % (13.4-35.0) L 02/12/22 03:10 [place] % (Auto) 4.6 % (0.0-7.3) 02/12/22 03:10 Eos % (Auto) 0.0 % (0.0-4.3) 02/12/22 03:10 Baso % (Auto) 0.1 % (0.0-1.8) 02/12/22 03:10 Lymph # (Auto) 1.2 K/mm3 (1.2-5.4) 02/12/22 03:10 [place] # (Auto) 0.5 K/mm3 (0.0-0.8) 02/12/22 03:10 Eos # (Auto) 0.0 K/mm3 (0.0-0.4) 02/12/22 03:10 Baso # (Auto) 0.0 K/mm3 (0.0-0.1) 02/12/22 03:10 Add Manual Diff Complete 02/09/22 23:36 Total Counted 100 02/09/22 23:36 Seg Neutrophils % 84.7 % (40.0-70.0) H 02/12/22 03:10 Seg Neuts % (Manual) 86.0 % (40.0-70.0) H 02/09/22 23:36 Band Neutrophils % 0 % 02/09/22 23:36 Lymphocytes % (Manual) 14.0 % (13.4-35.0) 02/09/22 23:36 Reactive Lymphs % (Man) 0 % 02/09/22 23:36 Monocytes % (Manual) 0 % (0.0-7.3) 02/09/22 23:36 Eosinophils % (Manual) 0 % (0.0-4.3) 02/09/22 23:36 Basophils % (Manual) 0 % (0.0-1.8) 02/09/22 23:36 Metamyelocytes % 0 % 02/09/22 23:36 Myelocytes % 0 % 02/09/22 23:36 Promyelocytes % 0 % 02/09/22 23:36 Blast Cells % 0 % 02/09/22 23:36 Nucleated RBC % Not Reportable 02/09/22 23:36 Seg Neutrophils # 9.3 K/mm3 (1.8-7.7) H 02/12/22 03:10 Seg Neutrophils # Man 10.9 K/mm3 (1.8-7.7) H 02/09/22 23:36 Band Neutrophils # 0.0 K/mm3 02/09/22 23:36 Lymphocytes # (Manual) 1.8 K/mm3 (1.2-5.4) 02/09/22 23:36 Abs React Lymphs (Man) 0.0 K/mm3 02/09/22 23:36 Monocytes # (Manual) 0.0 K/mm3 (0.0-0.8) 02/09/22 23:36 Eosinophils # (Manual) 0.0 K/mm3 (0.0-0.4) 02/09/22 23:36 Basophils # (Manual) 0.0 K/mm3 (0.0-0.1) 02/09/22 23:36 Metamyelocytes # 0.0 K/mm3 02/09/22 23:36 Myelocytes # 0.0 K/mm3 02/09/22 23:36 Promyelocytes # 0.0 K/mm3 02/09/22 23:36 Blast Cells # 0.0 K/mm3 02/09/22 23:36 WBC Morphology Not Reportable 02/09/22 23:36 Hypersegmented Neuts Not Reportable 02/09/22 23:36 Hyposegmented Neuts Not Reportable 02/09/22 23:36 Hypogranular Neuts Not Reportable 02/09/22 23:36 Smudge Cells Not Reportable 02/09/22 23:36 Toxic Granulation Not Reportable 02/09/22 23:36 Toxic Vacuolation Not Reportable 02/09/22 23:36 Dohle Bodies Not Reportable 02/09/22 23:36 Pelger-Huet Anomaly Not Reportable 02/09/22 23:36 Mario Alberto Rods Not Reportable 02/09/22 23:36 Platelet Estimate Consistent w auto 02/09/22 23:36 Clumped Platelets Not Reportable 02/09/22 23:36 Plt Clumps, EDTA Not Reportable 02/09/22 23:36 Large Platelets Not Reportable 02/09/22 23:36 Giant Platelets Not Reportable 02/09/22 23:36 Platelet Satelliting Not Reportable 02/09/22 23:36 Plt Morphology Comment Not Reportable 02/09/22 23:36 RBC Morphology Not Reportable 02/09/22 23:36 Dimorphic RBCs Not Reportable 02/09/22 23:36 Polychromasia Few 02/09/22 23:36 Hypochromasia Not Reportable 02/09/22 23:36 Poikilocytosis 1+ 02/09/22 23:36 Anisocytosis 1+ 02/09/22 23:36 Microcytosis Not Reportable 02/09/22 23:36 Macrocytosis Not Reportable 02/09/22 23:36 Spherocytes 1+ 02/09/22 23:36 Pappenheimer Bodies Not Reportable 02/09/22 23:36 Sickle Cells Not Reportable 02/09/22 23:36 Target Cells Not Reportable 02/09/22 23:36 Tear Drop Cells Not Reportable 02/09/22 23:36 Ovalocytes Not Reportable 02/09/22 23:36 Helmet Cells Not Reportable 02/09/22 23:36 [place] Bodies Not Reportable 02/09/22 23:36 [place] Rings Not Reportable 02/09/22 23:36 Ava Cells Not Reportable 02/09/22 23:36 Bite Cells Not Reportable 02/09/22 23:36 Crenated Cell Not Reportable 02/09/22 23:36 Elliptocytes Not Reportable 02/09/22 23:36 Acanthocytes (Spur) Not Reportable 02/09/22 23:36 Rouleaux Not Reportable 02/09/22 23:36 Hemoglobin C Crystals Not Reportable 02/09/22 23:36 Schistocytes Not Reportable 02/09/22 23:36 Malaria parasites Not Reportable 02/09/22 23:36 Blad[place] Bodies Not Reportable 02/09/22 23:36 Hem Pathologist Commnt No 02/09/22 23:36 PT 15.4 Sec. (12.2-14.9) H 02/11/22 05:40 INR 1.09 (0.87-1.13) 02/11/22 05:40 APTT 27.7 Sec. (24.2-36.6) 02/09/22 23:36 Sodium 138 mmol/L (137-145) 02/12/22 03:10 Potassium 4.0 mmol/L (3.6-5.0) D 02/12/22 03:10 Chloride 100.3 mmol/L (98-107) 02/12/22 03:10 Carbon Dioxide 22 mmol/L (22-30) 02/12/22 03:10 Anion Gap 20 mmol/L 02/12/22 03:10 BUN 8 mg/dL (7-17) 02/12/22 03:10 Creatinine 0.9 mg/dL (0.6-1.2) 02/12/22 03:10 Estimated GFR > 60 ml/min 02/12/22 03:10 BUN/Creatinine Ratio 9 % 02/12/22 03:10 Glucose 139 mg/dL (65-100) H 02/12/22 03:10 Hemoglobin A1c 5.7 % (4-6) 02/11/22 05:40 Calcium 7.7 mg/dL (8.4-10.2) L 02/12/22 03:10 Phosphorus 1.80 mg/dL (2.5-4.5) L 02/12/22 03:10 Magnesium 2.20 mg/dL (1.7-2.3) 02/12/22 03:10 Total Bilirubin 0.80 mg/dL (0.1-1.2) 02/12/22 03:10 AST 20 units/L (5-40) 02/12/22 03:10 ALT 13 units/L (7-56) 02/12/22 03:10 Alkaline Phosphatase 67 units/L (35-129) 02/12/22 03:10 Ammonia 20.0 umol/L (25-60) L 02/09/22 23:36 Total Creatine Kinase 147 units/L (30-135) H 02/09/22 23:36 CK-MB (CK-2) 1.6 ng/mL (0.0-4.0) 02/09/22 23:36 CK-MB (CK-2) Rel Index 1.0 (0-4) 02/09/22 23:36 Troponin T < 0.010 ng/mL (0.00-0.029) 02/09/22 23:36 Total Protein 7.3 g/dL (6.3-8.2) 02/12/22 03:10 Albumin 4.1 g/dL (3.9-5) 02/12/22 03:10 Albumin/Globulin Ratio 1.3 % 02/12/22 03:10 Prealbumin 0.132 g/L (0.200-0.400) L 02/12/22 23:31 Triglycerides 97 mg/dL (2-149) 02/10/22 11:44 Cholesterol 168 mg/dL (50-199) 02/10/22 11:44 LDL Cholesterol Direct 102 mg/dL (50-130) 02/10/22 11:44 HDL Cholesterol 50 mg/dL (40-59) 02/10/22 11:44 Cholesterol/HDL Ratio 3.36 % 02/10/22 11:44 Vitamin B12 519.4 pg/mL (211-911) 02/12/22 23:31 Folate 5.80 ng/mL (7.3-26.0) L 02/12/22 23:31 TSH 1.100 mlU/mL (0.270-4.200) 02/12/22 23:31 Free T4 1.55 ng/dL (0.76-1.46) H 02/09/22 23:36 Urine Color Marjorie (Yellow) 02/09/22 01:40 Urine Turbidity Slightly-cloudy (Clear) 02/09/22 01:40 Urine pH 7.0 (5.0-7.0) 02/09/22 01:40 Ur Specific [place] 1.055 (1.003-1.030) H 02/09/22 01:40 Urine Protein 100 mg/dl mg/dL (Negative) 02/09/22 01:40 Urine Glucose (UA) Neg mg/dL (Negative) 02/09/22 01:40 Urine Ketones 20 mg/dL (Negative) 02/09/22 01:40 Urine Blood Mod (Negative) 02/09/22 01:40 Urine Nitrite Neg (Negative) 02/09/22 01:40 Ur Reducing Substances Not Reportable 02/09/22 01:40 Urine Bilirubin Neg (Negative) 02/09/22 01:40 Urine Ictotest Not Reportable 02/09/22 01:40 Urine Urobilinogen 2.0 mg/dL (<2.0) 02/09/22 01:40 Ur Leukocyte Esterase Mod (Negative) 02/09/22 01:40 Urine WBC (Auto) 25.0 /HPF (0.0-6.0) H 02/09/22 01:40 Urine RBC (Auto) 126.0 /HPF (0.0-6.0) 02/09/22 01:40 U Epithel Cells (Auto) 34.0 /HPF (0-13.0) H 02/09/22 01:40 Urine Bacteria (Auto) 4+ /HPF (Negative) 02/09/22 01:40 Urine Mucus 1+ /HPF 02/09/22 01:40 Plasma/Serum Alcohol < 0.01 % (0-0.07) 02/09/22 23:36 Microbiology: Microbiology 02/09/22 01:40 Urine,Clean Catch Urine Culture - Preliminary Gram Negative Jerry Huerta/IV: Voiding Method Toilet Active Medications - Current Medications Current Medications: Generic Name Dose Route Start Last Admin Trade Name Freq PRN Reason Stop Dose Admin Acetaminophen 650 mg 02/10/22 01:00 02/11/22 09:50 Acetaminophen 325 Mg Tab PO 650 mg Q6H PRN Administration Pain MILD(1-3)/Fever >100.5/RUELAS Atorvastatin Calcium 40 mg 02/10/22 22:00 02/12/22 21:12 Atorvastatin 40 Mg Tab PO 40 mg QHS MIHAELA Administration Bisacodyl 10 mg 02/10/22 01:00 Bisacodyl 10 Mg Rect Supp ND QDAY PRN Constipation Levetiracetam 750 mg 02/13/22 10:00 02/13/22 12:21 Levetiracetam 500 Mg Tab PO 750 mg BID MIHAELA Administration Magnesium Hydroxide 30 ml 02/10/22 01:00 02/12/22 21:12 Magnesium Hydroxide (Mom) Oral Liqd Udc PO 30 ml Q4H PRN Administration Constipation Metoclopramide HCl 10 mg 02/10/22 01:00 02/13/22 12:22 Metoclopramide 10 Mg Tab PO 10 mg Q6H PRN Administration Nausea And Vomiting Morphine Sulfate 4 mg 02/10/22 01:00 Morphine 4 Mg/1 Ml Inj IV Q4H PRN Pain , Severe (7-10) Morphine Sulfate 2 mg 02/10/22 01:00 02/11/22 16:08 Morphine 2 Mg/1 Ml Inj IV 2 mg Q4H PRN Administration Pain, Moderate (4-6) Ondansetron HCl 4 mg 02/10/22 01:00 02/10/22 01:50 Ondansetron 4 Mg/2 Ml Inj IV 4 mg Q8H PRN Administration Nausea And Vomiting Prednisone 10 mg 02/11/22 15:00 02/13/22 12:21 Prednisone 10 Mg Tab PO 10 mg QDAY MIHAELA Administration Promethazine HCl 25 mg 02/10/22 01:00 Promethazine 25 Mg Rect Supp ND Q6H PRN Nausea And Vomiting Sodium Chloride 10 ml 02/10/22 10:00 02/13/22 12:22 Sodium Chloride 0.9% 10 Ml Flush Syringe IV 10 ml BID MIHAELA Administration Sodium Chloride 10 ml 02/10/22 01:00 Sodium Chloride 0.9% 10 Ml Flush Syringe IV PRN PRN LINE FLUSH Nutrition/Malnutrition Assess - Dietary Evaluation Nutrition/Malnutrition Findings: Nutrition Notes Start: 02/10/22 09:27 Freq: Status: Active Protocol: Document 02/12/22 17:09 JOAN (Rec: 02/12/22 17:18 JOAN [email or web address]) Nutrition Notes Initial or Follow up Reassessment Current Diagnosis Hypertension,Stroke Other Pertinent Diagnosis AMS, Dementia, afib Current Diet Cardiac Labs/Tests Phos 1.8 Ca 7.7 Pertinent Medications Prednisone Height 5 ft 8 in Weight 53.8 kg Usual Body Weight 81.8 kg [place] Body Weight (kg) 63.63 BMI 18.0 Weight change and time frame Pt with unintentional 34% wt loss since July 2021 Weight Status Underweight Subjective/Other Information Pt is alert and oriented x 2 at time of visit today. Her daughter is at bedside; says pt's appetite declined over the past several months. She drinks Ensure and Gatorade at home. Per MEDICAL SAFETY DIRECTOR evaluation on , [facility] with thin liquids. No PO intakes documented at this time. Burn Absent Trauma Absent Energy Intake (non-severe) <75% Estimated Energy Requirement >7 days Interpretation of Weight Loss (severe) >10% in 6 months Body Fat Depletion Moderate depletion (severe) Muscle Mass Moderate Depletion (severe) Protein-Calorie Malnutrition Severe #1 Nutrition Diagnosis Predicted suboptimal energy intake,Unintended weight loss Etiology advanced age, AMS, decreased PO intake As Evidenced by Signs and Symptoms Pt with 34% wt loss since July 2021 Is patient on ventilator? No Is Patient Ambulatory and/or Out of Bed Yes REE-([place] Jeor-ambulatory/OOB) [ 1412.450 [id number]] Kcal/Kg value to use for calculation 35 Approximate Energy Requirements Using 1883 kcal/Kg Calculation Used for Recommendations Kcal/kg Additional Notes Pro needs 1.2-1.5g/k-81g/ day Fluid needs 1ml/kcal Nutrition Intervention Change Diet Order: Continue cardiac mech soft diet Add Supplement/Snack (indicate name/kcal Ensure Enlive TID /protein ) Provides kCal: 1,050 Provides Protein (gm) 60 Goal #1 PO intake of meals plus ONS to meet 100% energy and pro needs Goal #2 Wt maintenance and/or gain Anticipated Discharge Needs: ONS 2-3 times daily for wt maintenance Follow-Up By: 02/15/22 Additional Comments F/U: intakes (meals, ONS), wt
[2022-02-13] MEDS: MORPHINE 2 MG/1 ML INJ IV PRN (18:56)
--- NOTE | 2022-02-13 20:34 | Progress Note ---
Assessment and Plan 76-year-old female with known history of dementia, dementia, atrial fibrillation, presenting the emergency room today via EMS with changes in mental status. Daughter indicates that she had the mother fall in the bathroom. She she looked stiff was said to be foaming in the mouth will follow on the floor. There has been no history of seizure disorder. No fever or chills, no chest pain or shortness of breath. Daughter was by the bedside gave most of the information as patient's appears confused Work-up in the emergency room today, CT of the head shows no acute abnormality. CTA of the head/neck reveals soft plaque with focal calcification resulting in 50% stenosis of the proximal left internal carotid artery. Right carotid bifu rcation is normal. Neurologist on-call was consulted and patient had tPA. Patient to be admitted into the intensive care unit status post tPA. Past History Past Medical History: arthritis, GERD, hypertension, other (Irregular heartbeat in the 90s, she is not sure what the diagnosis was. HPLD, ANXIETY, GERD, ARTHRITIS) Past Surgical History: appendectomy, cholecystectomy, Other (Hemorrhoidectomy) Social history: no significant social history - Patient Problems (1) ARF (acute renal failure) Current Visit: No Status: Acute (2) Aortic stenosis Current Visit: No Status: Acute (3) Atrial fibrillation with RVR Current Visit: No Status: Acute (4) Chest pain Current Visit: No Status: Acute (5) Diabetes mellitus, new onset Current Visit: No Status: Acute (6) Elevated troponin I level Current Visit: No Status: Acute (7) Asthma Onset Date: 09/23/13 Current Visit: No Status: Chronic (8) Hypertension Onset Date: 09/23/13 Current Visit: No Status: Chronic Subjective Date of service: 02/13/22 Principal diagnosis: Acute CVA, encephalopathy Interval history: 76-year-old female with known history of dementia, dementia, atrial fibrillation, presenting the emergency room today via EMS with changes in mental status. Daughter indicates that she had the mother fall in the bathroom. She she looked stiff was said to be foaming in the mouth will follow on the floor. There has been no history of seizure disorder. No fever or chills, no chest pain or shortness of breath. Daughter was by the bedside gave most of the information as patient's appears confused Work-up in the emergency room today, CT of the head shows no acute abnormality. CTA of the head/neck reveals soft plaque with focal calcification resulting in 50% stenosis of the proximal left internal carotid artery. Right carotid bifurc ation is normal. Neurologist on-call was consulted and patient had tPA. Patient to be admitted into the intensive care unit status post tPA. Past History Past Medical History: arthritis, GERD, hypertension, other (Irregular heartbeat in the 90s, she is not sure what the diagnosis was. HPLD, ANXIETY, GERD, ARTHRITIS) Past Surgical History: appendectomy, cholecystectomy, Other (Hemorrhoidectomy) Social history: no significant social history Objective Vital Signs - 12hr 02/13/22 02/13/22 02/13/22 10:00 12:00 15:54 Temperature 98.4 F Pulse Rate 62 54 L Respiratory 18 Rate Blood Pressure 169/71 O2 Sat by Pulse 96 97 Oximetry 02/13/22 02/13/22 16:00 19:53 Temperature 98.2 F Pulse Rate 81 62 Respiratory 16 Rate Blood Pressure 139/56 O2 Sat by Pulse 96 Oximetry CBC and BMP: 02/12/22 03:10 02/12/22 03:10 ABG, PT/INR, D-dimer: PT/INR, D-dimer PT 15.4 Sec. (12.2-14.9) H 02/11/22 05:40 INR 1.09 (0.87-1.13) 02/11/22 05:40 Abnormal lab findings: Abnormal Labs 02/09/22 02/09/22 02/09/22 01:40 23:36 23:36 WBC 12.7 H RBC Hgb 9.6 L Hct MCH 25 L RDW 19.1 H Lymph % (Auto) Seg Neutrophils % 77.2 H Seg Neuts % (Manual) 86.0 H Seg Neutrophils # 10.2 H Seg Neutrophils # Man 10.9 H PT 15.9 H INR 1.14 H Potassium Glucose Calcium Phosphorus Magnesium Ammonia Total Creatine Kinase Albumin Prealbumin Folate Free T4 Ur Specific [place] 1.055 H Urine WBC (Auto) 25.0 H U Epithel Cells (Auto) 34.0 H 02/09/22 02/09/22 02/09/22 23:36 23:36 23:36 WBC RBC Hgb Hct MCH RDW Lymph % (Auto) Seg Neutrophils % Seg Neuts % (Manual) Seg Neutrophils # Seg Neutrophils # Man PT INR Potassium 3.2 L Glucose 192 H Calcium 7.1 L Phosphorus Magnesium Ammonia 20.0 L Total Creatine Kinase 147 H Albumin 3.5 L Prealbumin Folate Free T4 1.55 H Ur Specific [place] Urine WBC (Auto) U Epithel Cells (Auto) 02/10/22 02/11/22 02/11/22 11:44 05:40 05:40 WBC 11.4 H RBC 3.43 L Hgb 8.7 L Hct 27.1 L MCH 26 L RDW 19.3 H Lymph % (Auto) Seg Neutrophils % Seg Neuts % (Manual) Seg Neutrophils # Seg Neutrophils # Man PT INR Potassium 3.3 L 3.2 L Glucose 107 H Calcium 7.3 L 6.9 L Phosphorus Magnesium 0.30 L* 1.60 L Ammonia Total Creatine Kinase Albumin Prealbumin Folate Free T4 Ur Specific [place] Urine WBC (Auto) U Epithel Cells (Auto) 02/11/22 02/12/22 02/12/22 05:40 03:10 03:10 WBC RBC Hgb Hct MCH 26 L RDW 19.4 H Lymph % (Auto) 10.6 L Seg Neutrophils % 84.7 H Seg Neuts % (Manual) Seg Neutrophils # 9.3 H Seg Neutrophils # Man PT 15.4 H INR Potassium Glucose 139 H Calcium 7.7 L Phosphorus 1.80 L Magnesium Ammonia Total Creatine Kinase Albumin Prealbumin Folate Free T4 Ur Specific [place] Urine WBC (Auto) U Epithel Cells (Auto) 02/12/22 02/12/22 23:31 23:31 WBC RBC Hgb Hct MCH RDW Lymph % (Auto) Seg Neutrophils % Seg Neuts % (Manual) Seg Neutrophils # Seg Neutrophils # Man PT INR Potassium Glucose Calcium Phosphorus Magnesium Ammonia Total Creatine Kinase Albumin Prealbumin 0.132 L Folate 5.80 L Free T4 Ur Specific [place] Urine WBC (Auto) U Epithel Cells (Auto)
[2022-02-14 08:06] VITALS: BP 186/73
[2022-02-14] MEDS ORDERED: NIFEdipine XL 30 MG TAB PO SCH (10:00)
[2022-02-14] MEDS: levETIRAcetam 500 MG TAB PO SCH (10:01)
[2022-02-14] MEDS: predniSONE 10 MG TAB PO SCH (10:01)
--- NOTE | 2022-02-14 12:13 | Discharge Summary ---
Providers - Providers Date of Admission: 02/10/22 01:00 Date of discharge: 02/14/22 Attending physician: DOMINGA CHANEL MD 02/10/22 01:00 Consult to Dietitian/Nutrition [CONS] Routine Physician Instructions: Reason For Exam: Reason for Consult: Diet education Consult to Dietitian/Nutrition [CONS] Routine Physician Instructions: Reason For Exam: Reason for Consult: Nutrition Recommendations Reason for Consult: Diet education Occupational Therapy Evaluate and Treat [CONS] Routine Comment: Reason For Exam: Neuro deficits Physical Therapy Evaluation and Treat [CONS] Routine Comment: Reason For Exam: Neuro deficits 02/10/22 01:03 Speech Therapy Evaluation and Treat [CONS] Routine Reason For Exam: swallow eval 02/10/22 01:13 Consult to Physician [CONS] Routine Comment: Consulting Provider: LORIE CLEMENTE Physician Instructions: Reason For Exam: CVA, possible seizures 02/10/22 01:29 Consult to Physician [CONS] Urgent Comment: Consulting Provider: PRATIBHA MORAN Physician Instructions: Reason For Exam: ICU admit/CVA status post tPA Primary care physician: EMPERATRIZ HICKMAN Hospitalization Reason for admission: Acute ischemic CVA status post tPA Condition: Serious Pertinent studies: Reviewed. Procedures: tPA administered Hospital course: Patient is a 74-year-old female with past medical history of obesity, hypertension, rheumatoid arthritis who presented after an unwitnessed fall with aphasia. It was described the patient went into the bathroom, and approximately 5 minutes later, her daughter heard a loud sound and saw the patient up against the wall foaming at the mouth with her arms flexed up and tight against her chest. Of note the patient had an admission in 2020 with atrial fibrillation with RVR in the setting of metabolic derangements but was not placed on anticoagulation. Neurology was consulted in the ED, and they recommend tPA to be administered at that time. Patient underwent CT head noncontrast, CT angio head and neck, and MRI brain that were found to be unremarkable. Patient underwent TTE revealing EF 60-65%, normal-sized LV, normal LV systolic, mild concentric LVH, unremarkable for PFO, moderate aortic stenosis with mean transaortic gradient of 19 mmHg, and RVSP is 30-35 mmHg. Physical therapy was consulted, they recommended home health with physical therapy. The patient was counseled at length about her having had a stroke/acute ischemic CVA. Patient was counseled at length about the importance of increasing p.o. intake to prevent episodes of lightheadedness/dehydration, the patient expressed understanding. Patient will be referred to outpatient neurology for further management. The patient is medically clear for discharge. Disposition: 01 HOME / SELF CARE / HOMELESS Final Discharge Diagnosis (Prints w/discharge instructions): Acute ischemic CVA status post tPA, hypertension, hyperlipidemia, hypocalcemia, hypokalemia, hypomagnesemia, obesity. Time spent for discharge: 45 min Core Measure Documentation - Palliative Care Palliative Care/ Comfort Measures: Not Applicable - Core Measures Any of the following diagnoses?: stroke - Stroke Discharge Requirements Statin for LDL = or >70 mg/dl on DC: Yes Anticoag for atrial fib/atrial flutter: No Reason for no anticoag for AF/F on DC: Not Indicated Antithrombotic for ischemic stroke: No Reason for no antithrombotic on DC: Not Indicated Exam - Constitutional Vitals: Temp Pulse Resp BP Pulse Ox 97.7 F 70 18 186/73 99 02/14/22 03:36 02/14/22 08:02 02/14/22 08:02 02/14/22 08:02 02/14/22 10:00 General appearance: Present: no acute distress, well-nourished, obese - EENT Eyes: Present: PERRL, EOM intact ENT: hearing intact, clear oral mucosa, dentition normal - Neck Neck: Present: supple, normal ROM - Respiratory Respiratory effort: normal Respiratory: bilateral: CTA - Cardiovascular Rhythm: regular Heart Sounds: Present: S1 & S2 - Extremities Extremities: no ischemia, pulses intact, pulses symmetrical, No edema, normal temperature, normal color Peripheral Pulses: within normal limits - Abdominal General gastrointestinal: Present: soft, non-tender, non-distended, normal bowel sounds Female genitourinary: Present: deferred - Rectal Rectal Exam: deferred - Integumentary Integumentary: Present: clear, warm, dry - Musculoskeletal Musculoskeletal: generalized weakness - Psychiatric Psychiatric: appropriate mood/affect, intact judgment & insight, cooperative - Neurologic Neurologic: CNII-XII intact, moves all extremities - Allied Health Allied health notes reviewed: nursing Plan Activity: advance as tolerated Diet: low salt Additional Instructions: Patient is a 74-year-old female with past medical history of obesity, hypertension, rheumatoid arthritis who presented after an unwitnessed fall with aphasia. It was described the patient went into the bathroom, and approximately 5 minutes later, her daughter heard a loud sound and saw the patient up against the wall foaming at the mouth with her arms flexed up and tight against her chest. Of note the patient had an admission in 2020 with atrial fibrillation with RVR in the setting of metabolic derangements but was not placed on anticoagulation. Neurology was consulted in the ED, and they recommend tPA to be administered at that time. Patient underwent CT head noncontrast, CT angio head and neck, and MRI brain that were found to be unremarkable. Patient underwent TTE revealing EF 60-65%, normal-sized LV, normal LV systolic, mild concentric LVH, unremarkable for PFO, moderate aortic stenosis with mean transaortic gradient of 19 mmHg, and RVSP is 30-35 mmHg. Physical therapy was consulted, they recommended home health with physical therapy. The patient was counseled at length about her having had a stroke/acute ischemic CVA. Patient was counseled at length about the importance of increasing p.o. intake to prevent episodes of lightheadedness/dehydration, the patient expressed understanding. Patient will be referred to outpatient neurology for further management. The patient is medically clear for discharge. Care Plan Goals: Patient is medically clear for discharge. Assessment: Patient is a 74-year-old female with past medical history of obesity, hypertension, rheumatoid arthritis who presented after an unwitnessed fall with aphasia. It was described the patient went into the bathroom, and approximately 5 minutes later, her daughter heard a loud sound and saw the patient up against the wall foaming at the mouth with her arms flexed up and tight against her chest. Of note the patient had an admission in 2020 with atrial fibrillation with RVR in the setting of metabolic derangements but was not placed on anticoa gulation. Neurology was consulted in the ED, and they recommend tPA to be administered at that time. Patient underwent CT head noncontrast, CT angio head and neck, and MRI brain that were found to be unremarkable. Patient underwent TTE revealing EF 60-65%, normal-sized LV, normal LV systolic, mild concentric LVH, unremarkable for PFO, moderate aortic stenosis with mean transaortic gradient of 19 mmHg, and RVSP is 30-35 mmHg. Physical therapy was consulted, they recommended home health with physical therapy. The patient was counseled at length about her having had a stroke/acute ischemic CVA. Patient was counseled at length about the importance of increasing p.o. intake to prevent episodes of lightheadedness/dehydration, the patient expressed understanding. Patient will be referred to outpatient neurology for further management. The patient is medically clear for discharge. Follow up with: LORIE CLEMENTE MD [Staff Physician] - 14 Days CHRISTIE DICKERSON MD [Staff Physician] - 7 Days Prescriptions: AtorvaSTATin [Lipitor] 40 mg PO QHS #30 tablet levETIRAcetam [Keppra TAB] 750 mg PO BID #60 tablet NIFEdipine XL [Procardia Xl] 30 mg PO QDAY #30 tablet
[2022-02-14] MEDS ORDERED: ASPIRIN 81 MG TAB CHEW PO SCH (13:00)
--- NOTE | 2022-02-14 14:51 | Progress Note ---
Assessment and Plan 76-year-old female with known history of dementia, dementia, atrial fibrillation,, HTN, GERD, arthritis presenting the emergency room today via EMS with changes in mental status. Daughter indicates that she had the mother fell in the bathroom. She looked stiff was said to be foaming in the mouth will follow on the floor. There has been no history of seizure disorder. No fever or chills, no chest pain or shortness of breath. Patient confused. Most of the history obtained through her daughter. Patients past surgical history Append ectomy, Cholecystectomy and Hemmoroidectomy. Patient has history of smoking 1 pack x 15 years. Counseled to stop smoking. Denies alcohol or drug abuse. 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 Work-up in the emergency room , CT of the head shows no acute abnormality. CTA of the head/neck reveals soft plaque with focal calcification resulting in 50% stenosis of the proximal left internal carotid artery. Right carotid bifurcation is normal. Neurologist on-call was consulted and patient had tPA. Patient to be admitted into the intensive care unit status post tPA. Patient was seen about to go home.. O2 saturation on room air 99%. No acute respiratory distress. Patient afebrile. No leukocytosis. Blood pressure 165/71 , Pulse 70 , respirations 18 Patient is on PO Prednisone. Patient did not get Chest xray as ordered. Patient going home. Talk to the patients daughter and told her bring her to the office as out patient. Will get chest xray as out patient. - Patient Problems (1) Aortic stenosis Current Visit: No Status: Acute Plan to address problem: Recommend Echocardiogram. Consult Cardiology. (2) Atrial fibrillation with RVR Current Visit: No Status: Acute Plan to address problem: Management as per cardiology. (3) Chest pain Current Visit: No Status: Acute Plan to address problem: Management as per cardiology. (4) Diabetes mellitus, new onset Current Visit: No Status: Acute Plan to address problem: Management as per primary care. (5) Asthma Onset Date: 09/23/13 Current Visit: No Status: Chronic Plan to address problem: Patient is on prednisone. Recommend albuterol inhalor 2 puffs po qid. (6) Hypertension Onset Date: 09/23/13 Current Visit: No Status: Chronic Plan to address problem: Management as per primary care. Subjective Date of service: 02/14/22 Principal diagnosis: Acute CVA, encephalopathy Interval history: 76-year-old female with known history of dementia, dementia, atrial fibrillation,, HTN, GERD, Asthma,arthritis presenting the emergency room today via EMS with changes in mental status. Daughter indicates that she had the mother fell in the bathroom. She looked stiff was said to be foaming in the mouth will follow on the floor. There has been no history of seizure disorder. No fever or chills, no chest pain or shortness of breath. Patient confused. Most of the history obtained through her daughter. Patients past surgical history Appendectomy, Cholecystectomy and Hemmoroidectomy. Patient has history of smoking 1 pack x 15 years. Counseled to stop smoking. Denies alcohol or drug abuse. 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 Work-up in the emergency room , CT of the head shows no acute abnormality. CTA of the head/neck reveals soft plaque with focal calcification resulting in 50% stenosis of the proximal left internal carotid artery. Right carotid bifurcation is normal. Neurologist on-call was consulted and patient had tPA. Patient to be admitted into the intensive care unit status post tPA. Patient was seen about to go home.. O2 saturation on room air 99%. No acute respiratory distress. Patient afebrile. No leukocytosis. Blood pressure 165/71 , Pulse 70 , respir ations 18 Patient is on PO Prednisone. Patient did not get Chest xray as ordered. Patient going home. Talk to the patients daughter and told her bring her to the office as out patient. Will get chest xray as out patient. Objective Vital Signs - 12hr 02/14/22 02/14/22 02/14/22 03:36 08:02 10:00 Temperature 97.7 F Pulse Rate 67 70 Respiratory 14 18 Rate Blood Pressure 165/71 Blood Pressure 186/73 [Right] O2 Sat by Pulse 98 99 99 Oximetry Constitutional: no acute distress, alert Eyes: non-icteric Neck: supple, no lymphadenopathy Effort: normal Ascultation: Bilateral: clear Cardiovascular: regular rate and rhythm Gastrointestinal: normoactive bowel sounds, soft, non-tender Integumentary: normal Extremities: no cyanosis, no edema Neurologic: normal mental status, non-focal exam, pupils equal and round Psychiatric: mood appropriate CBC and BMP: 02/12/22 03:10 02/12/22 03:10 ABG, PT/INR, D-dimer: PT/INR, D-dimer PT 15.4 Sec. (12.2-14.9) H 02/11/22 05:40 INR 1.09 (0.87-1.13) 02/11/22 05:40 Abnormal lab findings: Abnormal Labs 02/09/22 02/09/22 02/09/22 01:40 23:36 23:36 WBC 12.7 H RBC Hgb 9.6 L Hct MCH 25 L RDW 19.1 H Lymph % (Auto) Seg Neutrophils % 77.2 H Seg Neuts % (Manual) 86.0 H Seg Neutrophils # 10.2 H Seg Neutrophils # Man 10.9 H PT 15.9 H INR 1.14 H Potassium Glucose Calcium Phosphorus Magnesium Ammonia Total Creatine Kinase Albumin Prealbumin Folate Free T4 Ur Specific [place] 1.055 H Urine WBC (Auto) 25.0 H U Epithel Cells (Auto) 34.0 H 02/09/22 02/09/22 02/09/22 23:36 23:36 23:36 WBC RBC Hgb Hct MCH RDW Lymph % (Auto) Seg Neutrophils % Seg Neuts % (Manual) Seg Neutrophils # Seg Neutrophils # Man PT INR Potassium 3.2 L Glucose 192 H Calcium 7.1 L Phosphorus Magnesium Ammonia 20.0 L Total Creatine Kinase 147 H Albumin 3.5 L Prealbumin Folate Free T4 1.55 H Ur Specific [place] Urine WBC (Auto) U Epithel Cells (Auto) 02/10/22 02/11/22 02/11/22 11:44 05:40 05:40 WBC 11.4 H RBC 3.43 L Hgb 8.7 L Hct 27.1 L MCH 26 L RDW 19.3 H Lymph % (Auto) Seg Neutrophils % Seg Neuts % (Manual) Seg Neutrophils # Seg Neutrophils # Man PT INR Potassium 3.3 L 3.2 L Glucose 107 H Calcium 7.3 L 6.9 L Phosphorus Magnesium 0.30 L* 1.60 L Ammonia Total Creatine Kinase Albumin Prealbumin Folate Free T4 Ur Specific [place] Urine WBC (Auto) U Epithel Cells (Auto) 02/11/22 02/12/22 02/12/22 05:40 03:10 03:10 WBC RBC Hgb Hct MCH 26 L RDW 19.4 H Lymph % (Auto) 10.6 L Seg Neutrophils % 84.7 H Seg Neuts % (Manual) Seg Neutrophils # 9.3 H Seg Neutrophils # Man PT 15.4 H INR Potassium Glucose 139 H Calcium 7.7 L Phosphorus 1.80 L Magnesium Ammonia Total Creatine Kinase Albumin Prealbumin Folate Free T4 Ur Specific [place] Urine WBC (Auto) U Epithel Cells (Auto) 02/12/22 02/12/22 23:31 23:31 WBC RBC Hgb Hct MCH RDW Lymph % (Auto) Seg Neutrophils % Seg Neuts % (Manual) Seg Neutrophils # Seg Neutrophils # Man PT INR Potassium Glucose Calcium Phosphorus Magnesium Ammonia Total Creatine Kinase Albumin Prealbumin 0.132 L Folate 5.80 L Free T4 Ur Specific [place] Urine WBC (Auto) U Epithel Cells (Auto)
== END 2022-02-15 01:19 | disposition home health service (06) | DRG 62 ==
LOC: ED 23:06 → CC1 02-10 01:00 → 4A 02-11 23:43
PROVIDERS: ADMIT Internal Medicine Geriatric Medicine; ATTEND Student in an Organized Health Care Education/Training Program
DX: I63.9 Cerebral infarction, unspecified (principal); N17.9 Acute kidney failure, unspecified; I10 Essential (primary) hypertension; E83.51 Hypocalcemia; E87.6 Hypokalemia; Z88.6 Allergy status to analgesic agent; K21.9 Gastro-esophageal reflux disease without esophagitis; M19.90 Unspecified osteoarthritis, unspecified site; Z90.49 Acquired absence of other specified parts of digestive tract; F41.9 Anxiety disorder, unspecified; E78.5 Hyperlipidemia, unspecified; Z90.710 Acquired absence of both cervix and uterus; F03.90 Unspecified dementia, unspecified severity, without behavioral disturbance, psychotic disturbance, mood disturbance, and anxiety; Z79.899 Other long term (current) drug therapy; M06.9 Rheumatoid arthritis, unspecified; E83.42 Hypomagnesemia; I48.91 Unspecified atrial fibrillation; R63.4 Abnormal weight loss; Z68.32 Body mass index [BMI] 32.0-32.9, adult; E11.9 Type 2 diabetes mellitus without complications; J45.909 Unspecified asthma, uncomplicated; E66.9 Obesity, unspecified; Z71.3 Dietary counseling and surveillance; I65.22 Occlusion and stenosis of left carotid artery
CPT/HCPCS: 36415; 70450; 70496; 70498; 70553; 80048; 80053; 80061; 80320; 81001; 82140; 82306; 82525; 82550; 82553; 82607; 82747; 83036; 83735; 84100; 84134; 84425; 84439; 84443; 84484; 85007; 85025; 85610; 85730; 87076; 87086; 87186; 93005; 93306; G0378; J3490; J7060; A9575; C8929; G0480; J0610; J1953; J2270; J2405; J2997; J3475; J3480; J7040; J7512; Q9967